=== PATIENT | female | born 1945 | race Caucasian/White ===

== ENCOUNTER 2016-06-01 05:33 | Observation (INO) ==
--- NOTE | 2016-06-01 06:03 | Emergency Department Note ---
Disposition Clinical Impression: Accidental fall from chair Qualifiers: Encounter type: initial encounter Qualified Code(s): W07.XXXA - Fall from chair , initial encounter Disposition: Admitted As Inpatient Condition: Good Instructions: Fall Prevention for Older Adults (ED) Reasons to Return/Additional Instructions: Follow-up with your primary care provider in 2-5 days. Referrals: Ede Guzmán CNP [Primary Care Provider] - Forms: ED Satisfaction Letter Time of Disposition: 08:24 Back Pain HPI - General Chief Complaint: ED Back Pain/Injury Stated Complaint: Low back pain D/T fall several times over 2-3 days Time Seen by Provider: 06/01/16 05:42 Source: patient, EMS Limitations: physical limitation Nursing Notes Reviewed: Yes Vital Signs Reviewed: Yes - History of Present Illness HPI Narrative: This is a 70-year-old female who has been falling recently she has fallen 4 times in the last week. This morning she rolled off a couch and hurt her back. Additionally her hips hurt and she hit her head Pt Subjective Complaint: fall Onset (ago): hour(s) Duration: constant - Related Data Home Medications Medication Instructions Recorded Confirmed Cyclobenzaprine [Flexeril] 10 mg PO HS 06/01/16 06/01/16 Furosemide [Lasix] 10 mg PO DAILY 06/01/16 06/01/16 HYDROcodone/Acet 5/325 mg [[place] 1 tab PO Q6H PRN 06/01/16 06/01/16 5-325 mg] Levothyroxine [Synthroid] 50 mcg PO 0630 06/01/16 06/01/16 Lisinopril [Zestril] 10 mg PO DAILY 06/01/16 06/01/16 Naproxen [Naprosyn] 500 mg PO BID 06/01/16 06/01/16 Allergies Allergy/AdvReac Type Severity Reaction Status Date / Time No Known Allergies Allergy Verified 06/01/16 05:49 All systems ED: reviewed and negative except as stated. Past Medical History - Past Medical History Medical history: Reports: diabetes, thyroid disease Psychiatric history: Reports: anxiety, depression - Social History Smoking Status: Current every day smoker Smokeless Tobacco Status: No Alcohol use: Reports: none Drug use: Reports: none Physical Exam - General Limitations: physical limitation General appearance: alert, anxious, in distress - Head Head exam: atraumatic, normocephalic - Eye Eye exam: Present: normal appearance - ENT ENT exam: normal exam - Neck Neck exam: Present: normal inspection. Absent: tenderness, meningismus - Chest Chest inspection: Present: normal inspection - Respiratory Respiratory exam: Present: normal lung sounds bilaterally - Cardiovascular Cardiovascular exam: Present: regular rate - Abdominal Exam Abdominal exam: Present: soft, Non-Tender - Extremities Exam Extremities exam: Present: normal inspection - Expanded Lower Extremity Exam Hip/Pelvis exam: Present: normal inspection - Back Exam Back exam: Present: normal inspection, tenderness (tender in lumbar region. Purple bruise from previous fall at left hip) - Neurological Exam Neurological exam: Present: alert, oriented X3 Course Course Narrative: Radiographic studies has been uneventful. While resting in the bed she appears comfortable. Going over to CAT scan she has had increased pain and getting her to lay flat on her back was quite time-consuming. - Reevaluation(s) Reevaluation #1: Time of discharge patient stated she could not get up due to pain. Patient is agreeable to admission. Vital Signs Temperature 97.1 F L 06/01/16 05:36 Pulse Rate 108 06/01/16 05:36 Respiratory Rate 22 06/01/16 05:36 Blood Pressure 153/112 06/01/16 05:36 O2 Sat by Pulse Oximetry 97 06/01/16 05:36 Temperature 97.1 F L 06/01/16 05:40 Pulse Rate 107 06/01/16 08:31 Respiratory Rate 18 06/01/16 08:31 Blood Pressure 152/83 06/01/16 08:31 O2 Sat by Pulse Oximetry 97 06/01/16 08:31 Oxygen Delivery Oxygen Delivery Room Air Back Pain/Injury - Lab Data Result diagrams: 06/01/16 05:40 06/01/16 05:40 Lab Results 06/01/16 06/01/16 06/01/16 Range/Units 05:40 05:40 05:40 WBC 10.6 (4.3-11.1) K/mcL RBC 4.77 (3.82-4.97) M/mcL Hgb 13.7 (11.5-15.4) g/dL Hct 42.5 (35.3-44.9) % MCV 89.1 (83.0-100.0) fL MCH 28.7 (28.0-33.3) pg MCHC 32.2 (31.6-35.5) g/dL RDW 14.0 (11.5-14.5) % Plt Count 166 (140-400) K/mcL MPV 12.4 (9.4-12.4) fL Immature Gran % 0.4 (0-4) % Seg Neutrophils % 76.6 % Lymphocytes % 19.3 % Monocytes % 2.8 % Eosinophils % 0.3 % Basophils % 0.6 % Neutrophils # 8.1 (1.6-8.9) K/mcL Lymphocytes # 2.0 (0.6-4.6) K/mcL Monocytes # 0.3 (0.0-1.3) K/mcL Eosinophils # 0.0 (0.0-0.6) K/mcL Basophils # 0.1 (0.0-0.2) K/mcL PT 11.4 (9.4-12.1) Seconds INR 1.1 Sodium 144 (136-145) mEq/L Potassium 4.0 (3.5-4.5) mEq/L Chloride 106 (98-109) mEq/L Carbon Dioxide 25 (19-29) mEq/L BUN 20 (7-20) mg/dL Creatinine 0.71 (0.57-1.11) mg/dL Est GFR ( Amer) > 60 (> 60) Est GFR (Non-Af Amer) > 60 (> 60) BUN/Creatinine Ratio 28 H (6-26) Glucose 134 H (70-99) mg/dL Calculated Osmolality 303 H (280-300) Calcium 9.4 (8.6-10.8) mg/dL Total Bilirubin 0.5 (0.2-1.2) mg/dL AST 20 (5-34) Units/L ALT 7 (0-55) Units/L Alkaline Phosphatase 115 (38-126) Units/L Troponin I (0-0.03) ng/mL B-Natriuretic Peptide (0-100) pg/mL Serum Total Protein 6.4 (6.0-8.3) g/dL Albumin 3.6 (3.5-5.0) g/dL Globulin 2.8 (2.4-3.5) g/dL Albumin/Globulin Ratio 1.3 (1.1-2.2) 06/01/16 06/01/16 Range/Units 05:40 05:40 WBC (4.3-11.1) K/mcL RBC (3.82-4.97) M/mcL Hgb (11.5-15.4) g/dL Hct (35.3-44.9) % MCV (83.0-100.0) fL MCH (28.0-33.3) pg MCHC (31.6-35.5) g/dL RDW (11.5-14.5) % Plt Count (140-400) K/mcL MPV (9.4-12.4) fL Immature Gran % (0-4) % Seg Neutrophils % % Lymphocytes % % Monocytes % % Eosinophils % % Basophils % % Neutrophils # (1.6-8.9) K/mcL Lymphocytes # (0.6-4.6) K/mcL Monocytes # (0.0-1.3) K/mcL Eosinophils # (0.0-0.6) K/mcL Basophils # (0.0-0.2) K/mcL PT (9.4-12.1) Seconds INR Sodium (136-145) mEq/L Potassium (3.5-4.5) mEq/L Chloride (98-109) mEq/L Carbon Dioxide (19-29) mEq/L BUN (7-20) mg/dL Creatinine (0.57-1.11) mg/dL Est GFR ( Amer) (> 60) Est GFR (Non-Af Amer) (> 60) BUN/Creatinine Ratio (6-26) Glucose (70-99) mg/dL Calculated Osmolality (280-300) Calcium (8.6-10.8) mg/dL Total Bilirubin (0.2-1.2) mg/dL AST (5-34) Units/L ALT (0-55) Units/L Alkaline Phosphatase (38-126) Units/L Troponin I 0.01 (0-0.03) ng/mL B-Natriuretic Peptide 146 H (0-100) pg/mL Serum Total Protein (6.0-8.3) g/dL Albumin (3.5-5.0) g/dL Globulin (2.4-3.5) g/dL Albumin/Globulin Ratio (1.1-2.2) - EKG Data EKG attestation: Yes I reviewed and interpreted this EKG. EKG shows normal: sinus rhythm Rate: normal Rhythm: NSR, PVC's Ectopy: PVC Interpretation: no acute changes, normal EKG
[2016-06-01 06:09] LABS: Basophils # 0.1 K/mcL (0.0-0.2); Basophils % 0.6 %; Eosinophils % 0.3 %; Hematocrit 42.5 % (35.3-44.9); Hemoglobin 13.7 g/dL (11.5-15.4); Immature Granulocytes % 0.4 % (0-4); Lymphocytes % 19.3 %; Mean Corpuscular HGB Conc 32.2 g/dL (31.6-35.5); Mean Corpuscular Hemoglobin 28.7 pg (28.0-33.3); Mean Corpuscular Volume 89.1 fL (83.0-100.0); Mean Platelet Volume 12.4 fL (9.4-12.4); Monocytes # 0.3 K/mcL (0.0-1.3); Monocytes % 2.8 %; Neutrophils # 8.1 K/mcL (1.6-8.9); Platelet Count 166 K/mcL (140-400); Red Blood Count 4.77 M/mcL (3.82-4.97); Segmented Neutrophils % 76.6 %
[2016-06-01 06:15] LABS: INR 1.1; Prothrombin Time 11.4 Seconds (9.4-12.1)
[2016-06-01] MEDS ORDERED: *HR* Morphine 2 MG/ML SYRINGE IVP STA ×3 (06:19→08:55)
[2016-06-01] MEDS ORDERED: Ondansetron 4 MG/2 ML VIAL IVP STA (06:20)
[2016-06-01 06:28] LABS: Alanine Aminotransferase 7 Units/L (0-55); Albumin 3.6 g/dL (3.5-5.0); Albumin/Globulin Ratio 1.3 (1.1-2.2); Alkaline Phosphatase 115 Units/L (38-126); Aspartate Amino Transferase 20 Units/L (5-34); BUN/Creatinine Ratio 28 (6-26); Bilirubin,Total 0.5 mg/dL (0.2-1.2); Blood Urea Nitrogen 20 mg/dL (7-20); Calcium 9.4 mg/dL (8.6-10.8); Carbon Dioxide 25 mEq/L (19-29); Chloride 106 mEq/L (98-109); Globulin 2.8 g/dL (2.4-3.5); Glucose 134 mg/dL (70-99); Osmolality,Calculated 303 (280-300); Sodium 144 mEq/L (136-145); Total Protein 6.4 g/dL (6.0-8.3); eGFR For African Americans > 60 (> 60); eGFR For Non-African Americans > 60 (> 60)
--- NOTE | 2016-06-01 10:21 | Electrocardiograph Report ---
[facility] Test Date: 2016-06-01 Pat Name: Imelda Keene Department: [id number] Room: [facility] Gender: F Flagger: [id number] : 1945 Requested By: Dave Castaneda Order Number: [id number] Reading MD: Stephen Otoole MD Measurements Intervals [place] Rate: 96 P: 152 OR: 161 QRS: 130 QRSD: 85 T: 149 QT: 333 QTc: 387 Interpretive Statements SINUS RHYTHM WITH FREQUENT VENTRICULAR PREMATURE COMPLEXES ARM LEADS REVERSED Electronically Signed On 06-01-16 10:19:14 EST by Stephen Otoole MD
[2016-06-01] MEDS ORDERED: *HR* Morphine 2 MG/ML SYRINGE IVP SCH (12:13)
[2016-06-01] MEDS ORDERED: Naloxone 0.4 MG/ML INJ IVP PRN (12:13)
--- NOTE | 2016-06-01 15:44 | Internal Med History&Physical ---
Date of Encounter: 06/01/16 Time of Encounter: 15:10 Assessment and Plan (1) Back pain Current visit: Yes Status: Acute She will be started on scheduled Tylenol, Neurontin, Naprosyn, and given a Lidoderm patch. Qualifiers: Back pain location: low back pain Chronicity: chronic Back pain laterality: midline Sciatica presence: unspecified whether sciatica present Qualified Code(s): M54.5 - Low back pain; G89.29 - Other chronic pain (2) High blood pressure Current visit: Yes Status: Chronic She will continue on lisinopril and Lasix. Blood pressure medication will be adjusted as needed. Qualifiers: Hypertension type: essential hypertension Qualified Code(s): I10 - Essential (primary) hypertension (3) DM type 2 (diabetes mellitus, type 2) Current visit: Yes Status: Chronic We will check hemoglobin A1c in a.m. She reports using Levemir 20 units at bedtime. Check Accu-Cheks with SSI. Qualifiers: Diabetes mellitus complication status: without complication Qualified Code( s): E11.9 - Type 2 diabetes mellitus without complications; Z79.4 - watermaster ( current) use of insulin (4) Hypothyroidism Current visit: Yes Status: Chronic We will order TSH in a.m. Qualifiers: Hypothyroidism type: unspecified Qualified Code(s): E03.9 - Hypothyroidism , unspecified (5) Hyperlipidemia Current visit: Yes Status: Chronic We will check lipid profile in a.m. Qualifiers: Hyperlipidemia type: unspecified Qualified Code(s): E78.5 - Hyperlipidemia , unspecified (6) Gout Current visit: Yes Status: Acute We will check uric acid level in a.m. Qualifiers: Gout site: unspecified site Gout etiology: unspecified cause Chronicity: chronic Presence of tophus: without tophus Qualified Code(s): M1A.9XX0 - Chronic gout, unspecified, without tophus (tophi) Internal Medicine - H&P: HPI Chief complaint: Falls with back pain Admitted From: Home Plans for Post Hospital Care: Home History of present illness: Ms. Keene is a 70 year old female who came to emergency room stating she is had several falls in the past 2 months and worsening back pain. She states she rolled off the couch earlier this morning was unable to get off the floor. She called for help and was brought to emergency room because of severe back pain. She was evaluated and admitted to [facility] for ongoing care needs. She states she has been in constant pain in her back since 2005. She had back surgery that year with incomplete relief of the pain. She has had worsening of the pain despite a second back surgery that was done in 2012. She reports her falls are due to her legs "giving out" due to the pain. She denies vertigo, syncope, or near syncope. She claims she has gout but denies other bone joint or muscle disorders. Past Med Surg Social Fam HX - Past Medical History Medical history: diabetes, thyroid disease Psychiatric history: anxiety, depression - Social History Smoking Status: Current every day smoker Smokeless Tobacco Status: No Alcohol use: none Drug use: none Internal Medicine - H&P: Meds Cyclobenzaprine [Flexeril] 10 mg PO HS 06/01/16 [History] Furosemide [Lasix] 10 mg PO DAILY 06/01/16 [History] HYDROcodone/Acet 5/325 mg [[place] 5-325 mg] 1 tab PO Q6H PRN 06/01/16 [History] Levothyroxine [Synthroid] 50 mcg PO 0630 06/01/16 [History] Lisinopril [Zestril] 10 mg PO DAILY 06/01/16 [History] Naproxen [Naprosyn] 500 mg PO BID 06/01/16 [History] Allergies No Known Allergies Allergy (Verified 06/01/16 05:49) All Systems PM: A 10-system review of systems was performed and is negative for pertinent findings except as documented above in the HPI. Review of systems: Gen.: She states her weight has decreased from 236 pounds one year ago to present weight of 161. This was unintentional weight loss. She states her usual adult weight was approximately 198 pounds. Cardiovascular: She has history of hypertension but denies [place] heart failure angina DVT or pulmonary embolus Respiratory: She smoked since age 12 up to one month ago. She smoked up to 3 packs per day. She does not wear home oxygen and has not been diagnosed with COPD. GI: She has had cholecystectomy. She denies disorders of her liver or exocrine pancreas : She denies hematuria dysuria or kidney stones Neurologic: She denies large distribution strokes or seizures. Endocrine: She was diagnosed with DM 2 in 1985. She has hypothyroidism and hyperlipidemia Hematology/oncology: She denies blood disorders cancers or anemia Psychiatric: She has history depression but denies anxiety or other mental health issues Musculoskeletal : As per history of present illness - Constitutional Vitals: Temp Pulse Resp BP Pulse Ox 97.4 F L 106 20 178/109 95 06/01/16 10:05 06/01/16 10:05 06/01/16 10:05 06/01/16 10:05 06/01/16 10:05 Exam: Gen.: She is a well-developed well-nourished female who appears in moderate to severe pain on movement HEENT: Head is atraumatic and normocephalic. Eyes: EOMI. There is no scleral icterus. Mouth: Mucosa is moist. Neck: Supple and nontender. There is no thyromegaly or adenopathy noted. Heart: Regular without murmurs gallops or ectopics. Lungs: No wheezes or crackles are heard. Abdomen: Soft and nontender. No masses or guarding are noted. Extremities: There is no cyanosis edema or clubbing noted. Dorsalis pedis posttibial pulses are trace palpable bilaterally. She has DJD changes of her hands. She complains of pain in her back on leg movement. Neurologic: Mental status: She is talkative and a fair to good historian. Cranial nerves: Smile is symmetric. Forehead wrinkles bilaterally. Tongue protrudes midline. EOMI. Motor: There is no pronator drift. Cerebellar: Finger to nose is intact bilaterally. Skin: Warm and dry Internal Med - H&P Results - Labs CBC & Chem 7: 06/01/16 05:40 06/01/16 05:40
[2016-06-01] MEDS: Furosemide 20 MG TABLET PO SCH (16:03)
[2016-06-01] MEDS: *HR* HYDROcodone/Acet 5/325 mg TABLET PO PRN ×2 (16:03→21:43)
[2016-06-01] MEDS: Acetaminophen 325 MG TABLET PO SCH (16:28)
[2016-06-01] MEDS: Gabapentin 300 MG CAPSULE PO SCH (16:28)
[2016-06-01] MEDS: Insulin DETEMIR 100 UNIT/ML X5UNITS SQ SCH (21:39)
[2016-06-02] MEDS: Acetaminophen 325 MG TABLET PO SCH ×4 (02:08→18:19)
[2016-06-02] MEDS: Gabapentin 300 MG CAPSULE PO SCH ×3 (02:09→16:45)
[2016-06-02] MEDS: *HR* HYDROcodone/Acet 5/325 mg TABLET PO PRN ×2 (06:08→15:08)
[2016-06-02] MEDS: Furosemide 20 MG TABLET PO SCH (08:07)
[2016-06-02 08:51] LABS: Hemoglobin A1C 5.5 %
[2016-06-02 09:41] LABS: Thyroid Stimulating Hormone 1.058 mcIU/mL (0.350-4.840)
--- NOTE | 2016-06-02 15:54 | Internal Med Progress Note ---
Date of Encounter: 06/02/16 Time of Encounter: 15:45 - Assessment and plan (1) Back pain Current Visit: Yes Status: Acute Assessment and plan: June 02. We will add Ultram and continue Tylenol, Neurontin, Naprosyn, and Lidoderm patch. We will have physical therapy and occupational therapy evaluations. Qualifiers: Back pain location: low back pain Chronicity: chronic Back pain laterality: midline Sciatica presence: unspecified whether sciatica present Qualified Code(s): M54.5 - Low back pain; G89.29 - Other chronic pain (2) High blood pressure Current Visit: Yes Status: Chronic Assessment and plan: June 02. Continue lisinopril and Lasix Qualifiers: Hypertension type: essential hypertension Qualified Code(s): I10 - Essential (primary) hypertension (3) DM type 2 (diabetes mellitus, type 2) Current Visit: Yes Status: Chronic Assessment and plan: June 02. Hemoglobin A1c was excellent at 5.5%. Continue present regimen Qualifiers: Diabetes mellitus complication status: without complication Qualified Code( s): E11.9 - Type 2 diabetes mellitus without complications; Z79.4 - long term care pharmacist ( current) use of insulin (4) Hypothyroidism Current Visit: Yes Status: Chronic Assessment and plan: June 02. TSH was normal. Continue present dose Synthroid Qualifiers: Hypothyroidism type: unspecified Qualified Code(s): E03.9 - Hypothyroidism , unspecified (5) Hyperlipidemia Current Visit: Yes Status: Chronic Assessment and plan: June 02. Her lipid profile was reviewed. We will not give medication at this time. Qualifiers: Hyperlipidemia type: unspecified Qualified Code(s): E78.5 - Hyperlipidemia , unspecified (6) Gout Current Visit: Yes Status: Acute Assessment and plan: June 02. Uric acid level slightly above desirable at 6.3. We will start low -dose allopurinol. Qualifiers: Gout site: unspecified site Gout etiology: unspecified cause Chronicity: chronic Presence of tophus: without tophus Qualified Code(s): M1A.9XX0 - Chronic gout, unspecified, without tophus (tophi) - Subjective Interval history: June 02. She states she has less pain but still significant amount when she moves. - Constitutional Vitals: Temp Pulse Resp BP Pulse Ox 97.8 F 77 18 145/89 96 06/02/16 15:34 06/02/16 15:34 06/02/16 15:34 06/02/16 15:34 06/02/16 15:34 Exam: She is resting comfortably and appears in no severe distress. I reviewed her medications and lab results. Internal Medicine: Result - Labs CBC & Chem 7: 06/01/16 05:40 06/01/16 05:40 - ABG Interpretation ABG results: PT/INR, D-dimer PT 11.4 Seconds (9.4-12.1) 06/01/16 05:40 Consult Discharge Plan - Plan Referrals: Ede Guzmán, HEALTH INFORMATION SYSTEMS TECHNICIAN [Primary Care Provider] - 1 week
[2016-06-03] MEDS: Insulin DETEMIR 100 UNIT/ML X5UNITS SQ SCH ×2 (00:01→22:51)
[2016-06-03] MEDS: Acetaminophen 325 MG TABLET PO SCH ×4 (00:42→17:36)
[2016-06-03] MEDS: Gabapentin 300 MG CAPSULE PO SCH ×2 (00:42→09:21)
[2016-06-03] MEDS: Furosemide 20 MG TABLET PO SCH (09:20)
[2016-06-03] MEDS: *HR* HYDROcodone/Acet 5/325 mg TABLET PO PRN ×2 (09:20→21:03)
--- NOTE | 2016-06-03 10:24 | Internal Med Progress Note ---
Date of Encounter: 06/03/16 Time of Encounter: 10:15 - Assessment and plan (1) Back pain Current Visit: Yes Status: Acute Assessment and plan: June 02. We will add Ultram and continue Tylenol, Neurontin, Naprosyn, and Lidoderm patch. We will have physical therapy and occupational therapy evaluations. June 03. Order PT and OT evaluations and continue present medical regimen Qualifiers: Back pain location: low back pain Chronicity: chronic Back pain laterality: midline Sciatica presence: unspecified whether sciatica present Qualified Code(s): M54.5 - Low back pain; G89.29 - Other chronic pain (2) High blood pressure Current Visit: Yes Status: Chronic Assessment and plan: June 02. Continue lisinopril and Lasix Qualifiers: Hypertension type: essential hypertension Qualified Code(s): I10 - Essential (primary) hypertension (3) DM type 2 (diabetes mellitus, type 2) Current Visit: Yes Status: Chronic Assessment and plan: June 02. Hemoglobin A1c was excellent at 5.5%. Continue present regimen Qualifiers: Diabetes mellitus complication status: without complication Qualified Code( s): E11.9 - Type 2 diabetes mellitus without complications; Z79.4 - terminal operations manager ( current) use of insulin (4) Hypothyroidism Current Visit: Yes Status: Chronic Assessment and plan: June 02. TSH was normal. Continue present dose Synthroid Qualifiers: Hypothyroidism type: unspecified Qualified Code(s): E03.9 - Hypothyroidism , unspecified (5) Hyperlipidemia Current Visit: Yes Status: Chronic Assessment and plan: June 02. Her lipid profile was reviewed. We will not give medication at this time. Qualifiers: Hyperlipidemia type: unspecified Qualified Code(s): E78.5 - Hyperlipidemia , unspecified (6) Gout Current Visit: Yes Status: Acute Assessment and plan: June 02. Uric acid level slightly above desirable at 6.3. We will start low -dose allopurinol. Qualifiers: Gout site: unspecified site Gout etiology: unspecified cause Chronicity: chronic Presence of tophus: without tophus Qualified Code(s): M1A.9XX0 - Chronic gout, unspecified, without tophus (tophi) - Subjective Interval history: June 02. She states she has less pain but still significant amount when she moves. June 03. She states her pain has not improved. - Constitutional Vitals: Temp Pulse Resp BP Pulse Ox 98.4 F 87 15 137/77 96 06/03/16 07:30 06/03/16 07:30 06/03/16 07:30 06/03/16 07:30 06/03/16 09:29 Exam: She is lying in bed and is pleasant. She does not appear to be in excessive pain. I reviewed her medications and lab results. Internal Medicine: Result - Labs CBC & Chem 7: 06/01/16 05:40 06/01/16 05:40 - ABG Interpretation ABG results: PT/INR, D-dimer PT 11.4 Seconds (9.4-12.1) 06/01/16 05:40 Consult Discharge Plan - Plan Referrals: Ede Guzmán HOME HEALTH SPECIALIST [Primary Care Provider] - 1 week
[2016-06-03] MEDS: Gabapentin 400 MG CAPSULE PO SCH ×2 (14:01→21:04)
[2016-06-04] MEDS: Acetaminophen 325 MG TABLET PO SCH ×4 (05:33→18:02)
[2016-06-04] MEDS: Gabapentin 400 MG CAPSULE PO SCH ×3 (06:04→21:28)
[2016-06-04] MEDS: Levothyroxine 25 MCG TABLET PO SCH (06:04)
[2016-06-04] MEDS: *HR* HYDROcodone/Acet 5/325 mg TABLET PO PRN ×2 (06:04→21:26)
[2016-06-04] MEDS: Furosemide 20 MG TABLET PO SCH (07:49)
--- NOTE | 2016-06-04 10:39 | Internal Med Progress Note ---
Date of Encounter: 06/04/16 Time of Encounter: 10:30 - Assessment and plan (1) Back pain Current Visit: Yes Status: Acute Assessment and plan: June 02. We will add Ultram and continue Tylenol, Neurontin, Naprosyn, and Lidoderm patch. We will have physical therapy and occupational therapy evaluations. June 03. Order PT and OT evaluations and continue present medical regimen June 04. Will add low dose OxyContin and continue with Flexeril, Neurontin, Naprosyn, and Ultram. Qualifiers: Back pain location: low back pain Chronicity: chronic Back pain laterality: midline Sciatica presence: unspecified whether sciatica present Qualified Code(s): M54.5 - Low back pain; G89.29 - Other chronic pain (2) High blood pressure Current Visit: Yes Status: Chronic Assessment and plan: June 02. Continue lisinopril and Lasix June 04. Blood pressures are stable. Continue lisinopril and Lasix Qualifiers: Hypertension type: essential hypertension Qualified Code(s): I10 - Essential (primary) hypertension (3) DM type 2 (diabetes mellitus, type 2) Current Visit: Yes Status: Chronic Assessment and plan: June 02. Hemoglobin A1c was excellent at 5.5%. Continue present regimen Qualifiers: Diabetes mellitus complication status: without complication Qualified Code( s): E11.9 - Type 2 diabetes mellitus without complications; Z79.4 - care home ( current) use of insulin (4) Hypothyroidism Current Visit: Yes Status: Chronic Assessment and plan: June 02. TSH was normal. Continue present dose Synthroid Qualifiers: Hypothyroidism type: unspecified Qualified Code(s): E03.9 - Hypothyroidism , unspecified (5) Hyperlipidemia Current Visit: Yes Status: Chronic Assessment and plan: June 02. Her lipid profile was reviewed. We will not give medication at this time. Qualifiers: Hyperlipidemia type: unspecified Qualified Code(s): E78.5 - Hyperlipidemia , unspecified (6) Gout Current Visit: Yes Status: Acute Assessment and plan: June 02. Uric acid level slightly above desirable at 6.3. We will start low -dose allopurinol. June 04. Continue low-dose allopurinol. Qualifiers: Gout site: unspecified site Gout etiology: unspecified cause Chronicity: chronic Presence of tophus: without tophus Qualified Code(s): M1A.9XX0 - Chronic gout, unspecified, without tophus (tophi) - Subjective Interval history: June 02. She states she has less pain but still significant amount when she moves. June 03. She states her pain has not improved. June 04. She reports no improvement in the pain. Physical therapy and occupational therapy did not feel they could offer much because of the severe pain on any movement. I spoke with Dr. Gonzales's office at [place] yesterday and faxed the report of her LS spine CT for review by the neurosurgeon. He has not yet reviewed when I called again today. It is anticipated he will review it later today or tomorrow morning to determine if she should be evaluated and treated before her scheduled visit June 12. - Constitutional Vitals: Temp Pulse Resp BP Pulse Ox 98.3 F 89 18 137/81 94 L 06/04/16 07:03 06/04/16 07:03 06/04/16 07:03 06/04/16 07:03 06/04/16 07:03 Exam: She is lying in bed and appears somewhat comfortable. I reviewed the medications and lab results. Internal Medicine: Result - Labs CBC & Chem 7: 06/01/16 05:40 06/01/16 05:40 - ABG Interpretation ABG results: PT/INR, D-dimer PT 11.4 Seconds (9.4-12.1) 06/01/16 05:40 Consult Discharge Plan - Plan Referrals: Ede Guzmán, EVENT MARKETING REPRESENTATIVE [Primary Care Provider] - 1 week
[2016-06-04] MEDS: *HR* OxyCODONE ER (12 HR) 10 MG TABLET PO SCH (16:44)
[2016-06-04] MEDS: Insulin DETEMIR 100 UNIT/ML X5UNITS SQ SCH (21:31)
[2016-06-05] MEDS: Acetaminophen 325 MG TABLET PO SCH ×4 (01:52→16:31)
[2016-06-05] MEDS: *HR* OxyCODONE ER (12 HR) 10 MG TABLET PO SCH ×3 (01:53→17:56)
[2016-06-05] MEDS: Levothyroxine 25 MCG TABLET PO SCH (06:39)
[2016-06-05] MEDS: Gabapentin 400 MG CAPSULE PO SCH ×2 (07:02→16:31)
[2016-06-05] MEDS: Furosemide 20 MG TABLET PO SCH (08:20)
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
[2016-06-05] MEDS ORDERED: Dextrose Gel 15 GM PO PRN ×2 (19:59)
[2016-06-05] MEDS ORDERED: D5% in Water 1,000 ML IV PRN (19:59)
[2016-06-05] MEDS ORDERED: *HR* Dextrose 50 % in Water (Syg) 50 ML SYRINGE IVP PRN (19:59)
[2016-06-05] MEDS: Insulin LISPRO 300 UNITS/3 ML VIAL SQ SCH (21:46)
[2016-06-05] MEDS: Insulin DETEMIR 100 UNIT/ML X5UNITS SQ SCH (21:46)
[2016-06-05] MEDS: *HR* HYDROcodone/Acet 5/325 mg TABLET PO PRN (21:49)
[2016-06-06] MEDS: Acetaminophen 325 MG TABLET PO SCH ×4 (00:18→16:54)
[2016-06-06] MEDS: Gabapentin 400 MG CAPSULE PO SCH ×3 (00:19→16:55)
[2016-06-06] MEDS: *HR* OxyCODONE ER (12 HR) 10 MG TABLET PO SCH ×3 (01:54→16:54)
[2016-06-06] MEDS: Levothyroxine 25 MCG TABLET PO SCH (06:36)
[2016-06-06] MEDS: Furosemide 20 MG TABLET PO SCH (09:24)
[2016-06-06] MEDS: Insulin LISPRO 300 UNITS/3 ML VIAL SQ SCH ×4 (09:31→21:16)
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
[2016-06-07] MEDS: *HR* OxyCODONE ER (12 HR) 10 MG TABLET PO SCH ×3 (00:11→16:19)
[2016-06-07] MEDS: Acetaminophen 325 MG TABLET PO SCH ×4 (00:12→18:35)
[2016-06-07] MEDS: Gabapentin 400 MG CAPSULE PO SCH ×3 (00:13→14:58)
[2016-06-07] MEDS: Levothyroxine 25 MCG TABLET PO SCH (06:06)
[2016-06-07] MEDS: Furosemide 20 MG TABLET PO SCH (09:11)
[2016-06-07] MEDS: Insulin LISPRO 300 UNITS/3 ML VIAL SQ SCH ×4 (09:12→20:57)
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
[2016-06-07] MEDS: *HR* HYDROcodone/Acet 5/325 mg TABLET PO PRN (20:57)
[2016-06-08] MEDS: Acetaminophen 325 MG TABLET PO SCH ×3 (01:17→12:39)
[2016-06-08] MEDS: Gabapentin 400 MG CAPSULE PO SCH ×3 (01:17→14:45)
[2016-06-08] MEDS: *HR* OxyCODONE ER (12 HR) 10 MG TABLET PO SCH ×2 (01:20→08:21)
[2016-06-08] MEDS: *HR* HYDROcodone/Acet 5/325 mg TABLET PO PRN ×2 (06:22→14:45)
[2016-06-08] MEDS: Levothyroxine 25 MCG TABLET PO SCH (06:22)
[2016-06-08 07:04] LABS: BUN/Creatinine Ratio 27 (6-26); Blood Urea Nitrogen 20 mg/dL (7-20); Carbon Dioxide 28 mEq/L (19-29); Chloride 103 mEq/L (98-109); Glucose 90 mg/dL (70-99); Osmolality,Calculated 294 (280-300); Potassium 4.2 mEq/L (3.5-4.5); Sodium 141 mEq/L (136-145); eGFR For African Americans > 60 (> 60); eGFR For Non-African Americans > 60 (> 60)
[2016-06-08] MEDS: Insulin LISPRO 300 UNITS/3 ML VIAL SQ SCH ×2 (07:43→12:40)
[2016-06-08] MEDS: Furosemide 20 MG TABLET PO SCH (08:21)
--- NOTE | 2016-06-08 10:33 | Discharge Summary ---
Date of Encounter: 06/08/16 Time of Encounter: 10:20 - Discharge Diagnosis (1) Back pain Priority: Primary Status: Acute Qualifiers: Back pain location: low back pain Chronicity: chronic Back pain laterality: midline Sciatica presence: unspecified whether sciatica present Qualified Code(s): M54.5 - Low back pain; G89.29 - Other chronic pain (2) High blood pressure Priority: Secondary Status: Chronic Qualifiers: Hypertension type: essential hypertension Qualified Code(s): I10 - Essential (primary) hypertension (3) DM type 2 (diabetes mellitus, type 2) Priority: Secondary Status: Chronic Qualifiers: Diabetes mellitus complication status: without complication Qualified Code( s): E11.9 - Type 2 diabetes mellitus without complications; Z79.4 - terminal gauger ( current) use of insulin (4) Hypothyroidism Priority: Secondary Status: Chronic Qualifiers: Hypothyroidism type: unspecified Qualified Code(s): E03.9 - Hypothyroidism , unspecified (5) Hyperlipidemia Priority: Secondary Status: Chronic Qualifiers: Hyperlipidemia type: unspecified Qualified Code(s): E78.5 - Hyperlipidemia , unspecified (6) Gout Priority: Secondary Status: Chronic Qualifiers: Gout site: unspecified site Gout etiology: unspecified cause Chronicity: chronic Presence of tophus: without tophus Qualified Code(s): M1A.9XX0 - Chronic gout, unspecified, without tophus (tophi) - Discharge Medications Prescriptions: Tramadol HCl [Ultram] 50 mg PO Q6H 5 Days Home Medications: Cyclobenzaprine [Flexeril] 10 mg PO HS 06/01/16 [History] Furosemide [Lasix] 10 mg PO DAILY 06/01/16 [History] HYDROcodone/Acet 5/325 mg [Thornton 5-325 mg] 1 tab PO Q6H PRN 06/01/16 [History] Levothyroxine [Synthroid] 50 mcg PO 0630 06/01/16 [History] Lisinopril [Zestril] 10 mg PO DAILY 06/01/16 [History] Naproxen [Naprosyn] 500 mg PO BID 06/01/16 [History] Acetaminophen [Tylenol] 650 mg PO Q6HR tablet 06/08/16 [Rx] Allopurinol [Zyloprim 100 MG] 200 mg PO DAILY tablet 06/08/16 [Rx] Gabapentin [Neurontin] 400 mg PO Q8H capsule 06/08/16 [Rx] Lidocaine Patch [Lidoderm 5% patch] 1 each TP DAILY adh..patch 06/08/16 [Rx] OxyCODONE ER (12 HR) [OxyCONTIN] 10 mg PO Q8HR tab.er.12h 06/08/16 [Rx] Tramadol HCl [Ultram] 50 mg PO Q6H 5 Days 06/08/16 [Rx] Allergies/Adverse Reactions: Allergies No Known Allergies Allergy (Verified 06/01/16 05:49) Date of admission: 06/01/16 08:57 Primary care physician: Ede Guzmán CNP Consults: 06/06/16 10:20 Consult to Occupational Therapy [CONS] Routine Comment: Evaluate, develop and implement POC Consult to Physical Therapy [CONS] Routine Comment: Evaluate, develop and implement POC 06/08/16 09:41 Consult to Occupational Therapy [CONS] Routine Comment: Evaluate, develop and implement POC Consult to Physical Therapy [CONS] Routine Comment: Evaluate, develop and implement POC - Patient Status Disposition: Transfer Short-Term Hosp Condition: Good - Discharge Instructions Hospital course: Ms. Keene is a 70 year old female who came to emergency room stating she is had several falls in the past 2 months and worsening back pain. She states she rolled off the couch earlier this morning was unable to get off the floor. She called for help and was brought to emergency room because of severe back pain. She was evaluated and admitted to [facility] for ongoing care needs. Initial orders were written by the emergency room physician. I saw her on June 01 and performed a history and physical. She was started on scheduled Tylenol, Neurontin, Naprosyn, and given a Lidoderm patch. Scheduled OxyContin was added a few days later. She had prn Thornton available also. She had persistent significant complaints of pain in her back. She had physical therapy and occupational therapy evaluations but could not participate in therapy significantly because of complaints of pain. I spoke with Dr. Montgomery's office at [place] and faxed him the report of the CT of the LS spine which showed significant pathology. He evaluated the CT report and recommended she be transferred to [facility] for ongoing intervention. Uric acid level returned elevated at 6.3. She was started on allopurinol. Hemoglobin A1c returned satisfactory at 5.5%. She was taken off Levemir and continued with Accu-Cheks and SSI. - Time Spent with Patient Total time spent providing and/or coordinating discharge services: - Constitutional Vitals: Temp Pulse Resp BP Pulse Ox 97.6 F 84 16 129/81 95 06/08/16 06:00 06/08/16 06:00 06/08/16 06:00 06/08/16 06:00 06/08/16 06:00 - VTE Documentation of Mechanical Device: Graduated compression elastic hosiery
[2016-06-08 10:37] VITALS: BP 137/91
== END 2016-06-08 14:15 | disposition short-term general hospital (02) ==
LOC: INPPIK 05:33 → EMEROOPIK 05:33 → INPPIK 09:59
PROVIDERS: ADMIT Internal Medicine; ATTEND Internal Medicine

== ENCOUNTER 2019-12-17 19:07 | Inpatient (IN) ==
[2019-12-17 19:46] LABS: Basophils # 0.1 K/mcL (0.0-0.2); Basophils % 0.6 %; Eosinophils # 0.1 K/mcL (0.0-0.6); Eosinophils % 0.9 %; Hemoglobin 9.8 g/dL (11.5-15.4); Immature Granulocytes % 0.2 % (0-4); Lymphocytes # 2.3 K/mcL (0.6-4.6); Lymphocytes % 26.8 %; Mean Corpuscular HGB Conc 28.8 g/dL (31.6-35.5); Mean Corpuscular Hemoglobin 21.6 pg (28.0-33.3); Mean Corpuscular Volume 74.9 fL (83.0-100.0); Mean Platelet Volume 11.6 fL (9.4-12.4); Monocytes # 0.4 K/mcL (0.0-1.3); Monocytes % 4.4 %; Neutrophils # 5.7 K/mcL (1.6-8.9); Platelet Count 240 K/mcL (140-400); Red Blood Count 4.54 M/mcL (3.82-4.97); Red Cell Distribution Width 18.6 % (11.5-14.5); Segmented Neutrophils % 67.1 %; White Blood Count 8.4 K/mcL (4.3-11.1)
[2019-12-17 20:06] LABS: Alanine Aminotransferase 3 Units/L (7-52); Albumin 3.5 g/dL (3.5-5.7); Albumin/Globulin Ratio 1.4 (1.1-2.2); Alkaline Phosphatase 65 Units/L (34-104); Aspartate Amino Transferase 9 Units/L (13-39); BUN/Creatinine Ratio 27 (6-26); Bilirubin,Total 0.3 mg/dL (0.3-1.0); Blood Urea Nitrogen 15 mg/dL (8-23); Calcium 8.3 mg/dL (8.6-10.3); Carbon Dioxide 30 mEq/L (23-29); Chloride 105 mEq/L (98-107); Globulin 2.5 g/dL (2.4-3.5); Glucose 92 mg/dL (70-105); Osmolality,Calculated 298 (280-300); Potassium 3.2 mEq/L (3.5-5.1); Sodium 144 mEq/L (136-145); eGFR For African Americans > 60 (> 60); eGFR For Non-African Americans > 60 (> 60)
[2019-12-17 20:15] LABS: Anisocytosis 1+ (Not Present); Hypochromasia Present (Not Present); Large Platelets Present (Not Present); Platelet Estimate Normal (Normal); Polychromasia 1+ (Not Present)
[2019-12-17] MEDS ORDERED: Potassium Effervescent 25 MEQ TABLET.EFF PO ONE (20:17)
[2019-12-17] MEDS ORDERED: Ondansetron 4 MG/2 ML VIAL IVP ONE (20:36)
[2019-12-17 20:37] LABS: Bilirubin,Urine Negative (Negative); Blood,Urine Negative (Negative); Clarity,Urine Slightly Cloudy (Clear); Color,Urine Yellow (Yellow); Glucose,Urine (UA) Normal (Normal); Ketones,Urine Negative (Negative); Leukocyte Esterase,Urine Negative (Negative); Nitrite,Urine Negative (Negative); PH,Urine 5.5 pH Units (5.0-8.0); Protein,Urine >=300 mg/dL (Neg-Trace); Specific Gravity,Urine >= 1.030 (1.010-1.025); Urobilinogen,Urine Normal (Normal)
[2019-12-17 20:45] LABS: Bacteria,Urine Moderate per hpf (None-Few); Hyaline Casts,Urine Few per lpf (None Seen); Mucus,Urine Many per lpf (None-Few)
[2019-12-17 20:47] LABS: RBC,Urine 0-3 per hpf (0-3); Squamous Epithelial Cell,Urine Moderate per hpf (None-Few)
[2019-12-17] MEDS ORDERED: levoFLOXacin 500 MG TABLET PO ONE (22:44)
[2019-12-18] MEDS ORDERED: Acetaminophen 325 MG TABLET PO PRN ×2 (00:23→02:15)
[2019-12-18] MEDS ORDERED: *HR* HYDROcodone/Acet 10/325 mg TABLET PO PRN ×2 (02:12→02:15)
[2019-12-18] MEDS: Levothyroxine 25 MCG TABLET PO SCH (05:54)
[2019-12-18] MEDS ORDERED: *HR* Dextrose 50 % in Water (Vial) 50 ML VIAL IVP PRN (08:16)
[2019-12-18] MEDS ORDERED: Dextrose Gel 15 GM/37.5 ML TUBE PO PRN ×2 (08:16)
[2019-12-18] MEDS ORDERED: D5% in Water 1,000 ML IVC PRN (08:16)
[2019-12-18] MEDS ORDERED: Albuterol 2.5 MG/3 ML NEBULIZER IH PRN (08:24)
[2019-12-18] MEDS: lisinopriL 20 MG TABLET PO SCH (08:25)
[2019-12-18] MEDS ORDERED: Ondansetron 4 MG/2 ML VIAL IVP PRN (08:29)
[2019-12-18] MEDS ORDERED: Azithromycin 500 MG in 0.9 % Sodium Chloride 250 ML IVPB SCH (09:00)
[2019-12-18] MEDS ORDERED: levoFLOXacin 500 MG TABLET PO SCH ×2 (09:00)
[2019-12-18] MEDS ORDERED: lisinopriL 10 MG TABLET PO SCH (09:00)
[2019-12-18] MEDS ORDERED: Furosemide 20 MG TABLET PO SCH (09:00)
[2019-12-18 09:08] LABS: Basophils % 0.4 %; Eosinophils # 0.1 K/mcL (0.0-0.6); Eosinophils % 0.8 %; Hematocrit 34.2 % (35.3-44.9); Hemoglobin 9.7 g/dL (11.5-15.4); Immature Granulocytes % 0.5 % (0-4); Lymphocytes # 1.3 K/mcL (0.6-4.6); Lymphocytes % 18.1 %; Mean Corpuscular HGB Conc 28.4 g/dL (31.6-35.5); Mean Corpuscular Hemoglobin 21.5 pg (28.0-33.3); Mean Corpuscular Volume 75.8 fL (83.0-100.0); Mean Platelet Volume 11.5 fL (9.4-12.4); Monocytes # 0.4 K/mcL (0.0-1.3); Monocytes % 5.4 %; Neutrophils # 5.5 K/mcL (1.6-8.9); Platelet Count 238 K/mcL (140-400); Red Blood Count 4.51 M/mcL (3.82-4.97); Red Cell Distribution Width 18.3 % (11.5-14.5); Segmented Neutrophils % 74.8 %; White Blood Count 7.4 K/mcL (4.3-11.1)
[2019-12-18 09:37] LABS: INR 2.9; Prothrombin Time 32.5 Seconds (9.4-12.1)
[2019-12-18 09:43] LABS: BUN/Creatinine Ratio 21 (6-26); Blood Urea Nitrogen 12 mg/dL (8-23); Calcium 8.4 mg/dL (8.6-10.3); Carbon Dioxide 34 mEq/L (23-29); Chloride 102 mEq/L (98-107); Glucose 97 mg/dL (70-105); Osmolality,Calculated 298 (280-300); Potassium 3.9 mEq/L (3.5-5.1); Sodium 144 mEq/L (136-145); eGFR For African Americans > 60 (> 60); eGFR For Non-African Americans > 60 (> 60)
[2019-12-18 11:02] LABS: Hypochromasia Present (Not Present)
[2019-12-18] MEDS: cefTRIAXone 1,000 MG in 0.9 % Sodium Chloride Mini Bag 100 ML IVPB SCH (11:04)
[2019-12-18] MEDS: Gabapentin 400 MG CAPSULE PO SCH ×3 (11:04→20:11)
[2019-12-18] MEDS: Furosemide 20 MG TABLET PO SCH (11:04)
[2019-12-18] MEDS: Azithromycin 500 MG in 0.9 % Sodium Chloride 250 ML IVPB SCH (11:05)
[2019-12-18] MEDS: Nicotine 14 MG PATCH.TD24 TD SCH (11:10)
[2019-12-18 13:09] LABS: Estimated Average Glucose 126 mg/dl
[2019-12-18] MEDS: Insulin LISPRO 300 UNITS/3 ML VIAL SQ SCH ×3 (13:17→20:11)
[2019-12-18 13:31] LABS: Adenovirus Not Detected (Not Detect); Bordetella Pertussis Not Detected (Not Detect); Chlamydophila pneumoniae Not Detected (Not Detect); Coronavirus 229E Not Detected (Not Detect); Coronavirus HKU1 Not Detected (Not Detect); Coronavirus NL63 Not Detected (Not Detect); Coronavirus OC43 Not Detected (Not Detect); Human Metapneumovirus Not Detected (Not Detect); Human Rhinovirus/Enterovirus Not Detected (Not Detect); Influenza A Subtype 2009 H1 Not Detected (Not Detect); Influenza B Not Detected (Not Detect); Mycoplasma pneumoniae Not Detected (Not Detect); Parainfluenza Virus 1 Not Detected (Not Detect); Parainfluenza Virus 2 Not Detected (Not Detect); Parainfluenza Virus 3 Not Detected (Not Detect); Parainfluenza Virus 4 Not Detected (Not Detect); Respiratory Syncytial Virus Not Detected (Not Detect)
[2019-12-18] MEDS: MethylPREDNISolone 40 MG/ML VIAL IVP SCH (16:13)
[2019-12-18] MEDS ORDERED: Warfarin perPT PO PRN (18:00)
[2019-12-18] MEDS ORDERED: *HR* Warfarin 5 MG TABLET PO ONE (18:00)
[2019-12-18] MEDS ORDERED: NON-FORMULARY MEDICATION 1 EACH EACH (Insulin Detemir 10 UNIT) SQ SCH (21:00)
[2019-12-18] MEDS ORDERED: Insulin DETEMIR 100 UNIT/ML per UNIT SQ SCH (21:00)
[2019-12-19] MEDS: MethylPREDNISolone 40 MG/ML VIAL IVP SCH ×3 (00:41→15:00)
[2019-12-19] MEDS: Levothyroxine 25 MCG TABLET PO SCH (05:39)
[2019-12-19 06:44] LABS: Hematocrit 33.4 % (35.3-44.9); Hemoglobin 9.6 g/dL (11.5-15.4); Immature Granulocytes % 0.4 % (0-4); Lymphocytes # 0.6 K/mcL (0.6-4.6); Lymphocytes % 11.2 %; Mean Corpuscular HGB Conc 28.7 g/dL (31.6-35.5); Mean Corpuscular Hemoglobin 21.5 pg (28.0-33.3); Mean Corpuscular Volume 74.9 fL (83.0-100.0); Mean Platelet Volume 11.7 fL (9.4-12.4); Monocytes # 0.1 K/mcL (0.0-1.3); Monocytes % 0.9 %; Neutrophils # 4.8 K/mcL (1.6-8.9); Platelet Count 224 K/mcL (140-400); Red Blood Count 4.46 M/mcL (3.82-4.97); Red Cell Distribution Width 18.2 % (11.5-14.5); Segmented Neutrophils % 87.5 %; White Blood Count 5.5 K/mcL (4.3-11.1)
[2019-12-19 06:46] LABS: INR 2.2
[2019-12-19 07:02] LABS: BUN/Creatinine Ratio 23 (6-26); Blood Urea Nitrogen 11 mg/dL (8-23); Calcium 8.7 mg/dL (8.6-10.3); Carbon Dioxide 33 mEq/L (23-29); Chloride 102 mEq/L (98-107); Glucose 186 mg/dL (70-105); Osmolality,Calculated 298 (280-300); Potassium 4.1 mEq/L (3.5-5.1); Sodium 142 mEq/L (136-145); eGFR For African Americans > 60 (> 60); eGFR For Non-African Americans > 60 (> 60)
[2019-12-19 07:28] LABS: Anisocytosis 1+ (Not Present)
[2019-12-19 07:29] LABS: Hypochromasia Present (Not Present)
[2019-12-19] MEDS: Nicotine 14 MG PATCH.TD24 TD SCH (08:19)
[2019-12-19] MEDS: cefTRIAXone 1,000 MG in 0.9 % Sodium Chloride Mini Bag 100 ML IVPB SCH (08:21)
[2019-12-19] MEDS: Gabapentin 400 MG CAPSULE PO SCH ×3 (08:22→20:40)
[2019-12-19] MEDS: lisinopriL 20 MG TABLET PO SCH (08:22)
[2019-12-19] MEDS: Furosemide 20 MG TABLET PO SCH (08:22)
[2019-12-19] MEDS: Insulin LISPRO 300 UNITS/3 ML VIAL SQ SCH ×4 (08:25→20:40)
[2019-12-19 09:40] LABS: Folate 9.3 ng/mL (3.0-16.0)
[2019-12-19 09:46] LABS: Iron < 10 mcg/dL (50-170); Transferrin 240 mg/dL (203-362)
[2019-12-19] MEDS: Azithromycin 500 MG in 0.9 % Sodium Chloride 250 ML IVPB SCH (10:15)
[2019-12-19] MEDS: Budesonide/Formoterol 160/4.5 1 PUFF INH IH SCH ×2 (13:15→19:36)
[2019-12-19] MEDS ORDERED: *HR* Warfarin 5 MG TABLET PO ONE (18:00)
[2019-12-20] MEDS: MethylPREDNISolone 40 MG/ML VIAL IVP SCH ×3 (00:50→15:04)
[2019-12-20] MEDS: Levothyroxine 25 MCG TABLET PO SCH (06:06)
[2019-12-20 06:30] LABS: Basophils % 0.1 %; Hematocrit 32.6 % (35.3-44.9); Hemoglobin 9.4 g/dL (11.5-15.4); Immature Granulocytes % 0.5 % (0-4); Lymphocytes # 0.8 K/mcL (0.6-4.6); Lymphocytes % 5.4 %; Mean Corpuscular HGB Conc 28.8 g/dL (31.6-35.5); Mean Corpuscular Hemoglobin 21.3 pg (28.0-33.3); Mean Corpuscular Volume 73.9 fL (83.0-100.0); Monocytes # 0.2 K/mcL (0.0-1.3); Monocytes % 1.2 %; Neutrophils # 12.8 K/mcL (1.6-8.9); Nucleated Red Blood Cells 0.1 /100 WBC (0); Platelet Count 234 K/mcL (140-400); Red Blood Count 4.41 M/mcL (3.82-4.97); Red Cell Distribution Width 18.2 % (11.5-14.5); Segmented Neutrophils % 92.8 %; White Blood Count 13.8 K/mcL (4.3-11.1)
[2019-12-20 06:49] LABS: INR 2.3; Prothrombin Time 26.5 Seconds (9.4-12.1)
[2019-12-20 07:01] VITALS: BP 136/85
[2019-12-20 07:19] LABS: Platelet Estimate Normal (Normal)
[2019-12-20 07:20] LABS: Anisocytosis 2+ (Not Present); Hypochromasia Present (Not Present); Ovalocytes 2+ (Not Present)
[2019-12-20] MEDS: Gabapentin 400 MG CAPSULE PO SCH ×2 (08:05→15:04)
[2019-12-20] MEDS: cefTRIAXone 1,000 MG in 0.9 % Sodium Chloride Mini Bag 100 ML IVPB SCH (08:05)
[2019-12-20] MEDS: Nicotine 14 MG PATCH.TD24 TD SCH (08:05)
[2019-12-20] MEDS: Furosemide 20 MG TABLET PO SCH (08:06)
[2019-12-20] MEDS: lisinopriL 20 MG TABLET PO SCH (08:06)
[2019-12-20] MEDS: Insulin LISPRO 300 UNITS/3 ML VIAL SQ SCH ×3 (08:07→17:25)
[2019-12-20 08:50] LABS: BUN/Creatinine Ratio 35 (6-26); Blood Urea Nitrogen 18 mg/dL (8-23); Calcium 8.8 mg/dL (8.6-10.3); Carbon Dioxide 31 mEq/L (23-29); Chloride 101 mEq/L (98-107); Glucose 189 mg/dL (70-105); Osmolality,Calculated 299 (280-300); Sodium 141 mEq/L (136-145); eGFR For African Americans > 60 (> 60); eGFR For Non-African Americans > 60 (> 60)
[2019-12-20] MEDS ORDERED: Simethicone 80 MG TAB.CHEW PO PRN (08:56)
[2019-12-20] MEDS ORDERED: Cyanocobalamin (B-12) 1,000 MCG TABLET PO SCH (09:00)
[2019-12-20] MEDS: Azithromycin 500 MG in 0.9 % Sodium Chloride 250 ML IVPB SCH (09:25)
[2019-12-20] MEDS: Budesonide/Formoterol 160/4.5 1 PUFF INH IH SCH (10:16)
[2019-12-20] MEDS ORDERED: *HR* Warfarin 5 MG TABLET PO ONE (18:00)
== END 2019-12-20 19:18 | disposition home or self-care (01) | DRG 193 ==
LOC: EMEROOPIK 19:07 → INPPIK 19:07 → SUATTDRO 12-18 11:51
PROVIDERS: ADMIT Internal Medicine; ATTEND Family Medicine

== ENCOUNTER 2021-06-29 15:34 | Inpatient (IN) ==
[2021-07-03] MEDS: traZODone 50 MG TABLET PO SCH (22:18)
[2021-07-03] MEDS: *HR* Metformin 500 MG TABLET PO SCH (22:18)
[2021-07-04 07:06] LABS: Basophils # 0.1 K/mcL (0.0-0.2); Basophils % 0.5 %; Eosinophils # 0.1 K/mcL (0.0-0.6); Eosinophils % 0.6 %; Hemoglobin 8.2 g/dL (11.5-15.4); Immature Granulocytes % 0.5 % (0-4); Lymphocytes # 2.3 K/mcL (0.6-4.6); Lymphocytes % 22.4 %; Mean Corpuscular HGB Conc 27.3 g/dL (31.6-35.5); Mean Corpuscular Hemoglobin 19.8 pg (28.0-33.3); Mean Corpuscular Volume 72.5 fL (83.0-100.0); Mean Platelet Volume 10.9 fL (9.4-12.4); Monocytes # 0.4 K/mcL (0.0-1.3); Neutrophils # 7.3 K/mcL (1.6-8.9); Platelet Count 267 K/mcL (140-400); Red Blood Count 4.14 M/mcL (3.82-4.97); Red Cell Distribution Width 20.4 % (11.5-14.5); White Blood Count 10.2 K/mcL (4.3-11.1)
[2021-07-04 07:35] LABS: BUN/Creatinine Ratio 41 (6-26); Blood Urea Nitrogen 26 mg/dL (8-23); Calcium 8.8 mg/dL (8.6-10.3); Carbon Dioxide 28 mEq/L (23-29); Chloride 104 mEq/L (98-107); Glucose 126 mg/dL (70-105); Osmolality,Calculated 294 (280-300); Potassium 4.1 mEq/L (3.5-5.1); Sodium 139 mEq/L (136-145); eGFR For African Americans > 60 (> 60); eGFR For Non-African Americans > 60 (> 60)
[2021-07-04] MEDS ORDERED: Tiotropium 10 INH DOSE IH ONE (08:36)
[2021-07-04] MEDS ORDERED: lisinopriL 20 MG TABLET PO SCH (09:00)
[2021-07-04] MEDS: BuPROPion XL (24 HR) 150 MG TABLET PO SCH (09:13)
[2021-07-04] MEDS: levoFLOXacin 500 MG TABLET PO SCH (09:14)
[2021-07-04] MEDS: *HR* Metformin 500 MG TABLET PO SCH ×2 (09:14→20:02)
[2021-07-04] MEDS: Sennosides/Docusate Sodium TABLET PO SCH (09:15)
[2021-07-04] MEDS: Multivit/Ca/Min/Fe/FA 1 TAB TABLET PO SCH (09:15)
[2021-07-04] MEDS: allopurinoL 100 MG TABLET PO SCH (09:15)
[2021-07-04] MEDS: Cyanocobalamin (B-12) 1,000 MCG TABLET PO SCH (09:16)
[2021-07-04] MEDS: Tiotropium 10 INH DOSE IH SCH (09:31)
[2021-07-04] MEDS: *HR* OxyCODONE Immed Rel 5 MG TABLET PO PRN (11:31)
[2021-07-04] MEDS: traZODone 50 MG TABLET PO SCH (20:02)
[2021-07-05] MEDS: Multivit/Ca/Min/Fe/FA 1 TAB TABLET PO SCH (08:06)
[2021-07-05] MEDS: BuPROPion XL (24 HR) 150 MG TABLET PO SCH (08:06)
[2021-07-05] MEDS: Cyanocobalamin (B-12) 1,000 MCG TABLET PO SCH (08:06)
[2021-07-05] MEDS: allopurinoL 100 MG TABLET PO SCH (08:07)
[2021-07-05] MEDS: levoFLOXacin 500 MG TABLET PO SCH (08:07)
[2021-07-05] MEDS: *HR* Metformin 500 MG TABLET PO SCH ×2 (08:07→19:37)
[2021-07-05] MEDS: Sennosides/Docusate Sodium TABLET PO SCH (08:07)
[2021-07-05] MEDS: Tiotropium 10 INH DOSE IH SCH (10:16)
[2021-07-05] MEDS: *HR* OxyCODONE Immed Rel 5 MG TABLET PO PRN (16:33)
[2021-07-05] MEDS: traZODone 50 MG TABLET PO SCH (19:37)
[2021-07-05 22:00] LABS: % Iron Saturation 3 % (15-50); Iron 13 mcg/dL (50-170); Transferrin 285 mg/dL (203-362)
[2021-07-05 22:26] LABS: Folate 14.8 ng/mL (3.0-16.0)
[2021-07-06] MEDS: Sennosides/Docusate Sodium TABLET PO SCH (07:20)
[2021-07-06] MEDS: Multivit/Ca/Min/Fe/FA 1 TAB TABLET PO SCH (07:58)
[2021-07-06] MEDS: allopurinoL 100 MG TABLET PO SCH (07:58)
[2021-07-06] MEDS: levoFLOXacin 500 MG TABLET PO SCH (07:58)
[2021-07-06] MEDS: Cyanocobalamin (B-12) 1,000 MCG TABLET PO SCH (07:58)
[2021-07-06] MEDS: *HR* Metformin 500 MG TABLET PO SCH ×2 (07:59→20:20)
[2021-07-06] MEDS: BuPROPion XL (24 HR) 150 MG TABLET PO SCH (07:59)
[2021-07-06] MEDS: *HR* OxyCODONE Immed Rel 5 MG TABLET PO PRN ×2 (08:11→18:52)
[2021-07-06] MEDS: Tiotropium 10 INH DOSE IH SCH (09:40)
[2021-07-06] MEDS: traZODone 50 MG TABLET PO SCH (20:20)
[2021-07-07] MEDS: *HR* Metformin 500 MG TABLET PO SCH ×2 (07:37→20:29)
[2021-07-07] MEDS: levoFLOXacin 500 MG TABLET PO SCH (07:37)
[2021-07-07] MEDS: Cyanocobalamin (B-12) 1,000 MCG TABLET PO SCH (07:38)
[2021-07-07] MEDS: Multivit/Ca/Min/Fe/FA 1 TAB TABLET PO SCH (07:38)
[2021-07-07] MEDS: BuPROPion XL (24 HR) 150 MG TABLET PO SCH (07:38)
[2021-07-07] MEDS: allopurinoL 100 MG TABLET PO SCH (07:38)
[2021-07-07] MEDS: Sennosides/Docusate Sodium TABLET PO SCH (07:40)
[2021-07-07] MEDS: Tiotropium 10 INH DOSE IH SCH (10:14)
[2021-07-07] MEDS: *HR* OxyCODONE Immed Rel 5 MG TABLET PO PRN ×2 (10:49→20:29)
[2021-07-07] MEDS: traZODone 50 MG TABLET PO SCH (20:30)
[2021-07-08] MEDS: Sennosides/Docusate Sodium TABLET PO SCH (09:19)
[2021-07-08] MEDS: Cyanocobalamin (B-12) 1,000 MCG TABLET PO SCH (09:19)
[2021-07-08] MEDS: levoFLOXacin 500 MG TABLET PO SCH (09:20)
[2021-07-08] MEDS: *HR* Metformin 500 MG TABLET PO SCH ×2 (09:20→20:04)
[2021-07-08] MEDS: BuPROPion XL (24 HR) 150 MG TABLET PO SCH (09:20)
[2021-07-08] MEDS: Multivit/Ca/Min/Fe/FA 1 TAB TABLET PO SCH (09:20)
[2021-07-08] MEDS: allopurinoL 100 MG TABLET PO SCH (09:21)
[2021-07-08] MEDS: Tiotropium 10 INH DOSE IH SCH (09:36)
[2021-07-08] MEDS: traZODone 50 MG TABLET PO SCH (20:04)
[2021-07-08] MEDS: *HR* OxyCODONE Immed Rel 5 MG TABLET PO PRN (20:05)
[2021-07-09] MEDS: Tiotropium 10 INH DOSE IH SCH (08:50)
[2021-07-09] MEDS: Cyanocobalamin (B-12) 1,000 MCG TABLET PO SCH (09:04)
[2021-07-09] MEDS: Multivit/Ca/Min/Fe/FA 1 TAB TABLET PO SCH (09:04)
[2021-07-09] MEDS: BuPROPion XL (24 HR) 150 MG TABLET PO SCH (09:04)
[2021-07-09] MEDS: Sennosides/Docusate Sodium TABLET PO SCH (09:04)
[2021-07-09] MEDS: *HR* Metformin 500 MG TABLET PO SCH ×2 (09:04→19:43)
[2021-07-09] MEDS: allopurinoL 100 MG TABLET PO SCH (09:04)
[2021-07-09] MEDS: levoFLOXacin 500 MG TABLET PO SCH (09:05)
[2021-07-09] MEDS: traZODone 50 MG TABLET PO SCH (19:42)
[2021-07-09] MEDS: *HR* OxyCODONE Immed Rel 5 MG TABLET PO PRN (19:43)
[2021-07-10] MEDS: BuPROPion XL (24 HR) 150 MG TABLET PO SCH (08:15)
[2021-07-10] MEDS: Multivit/Ca/Min/Fe/FA 1 TAB TABLET PO SCH (08:15)
[2021-07-10] MEDS: Sennosides/Docusate Sodium TABLET PO SCH (08:15)
[2021-07-10] MEDS: Cyanocobalamin (B-12) 1,000 MCG TABLET PO SCH (08:15)
[2021-07-10] MEDS: levoFLOXacin 500 MG TABLET PO SCH (08:15)
[2021-07-10] MEDS: *HR* Metformin 500 MG TABLET PO SCH ×2 (08:16→21:22)
[2021-07-10] MEDS: allopurinoL 100 MG TABLET PO SCH (08:16)
[2021-07-10] MEDS: Tiotropium 10 INH DOSE IH SCH (10:02)
[2021-07-10] MEDS: *HR* OxyCODONE Immed Rel 5 MG TABLET PO PRN (10:26)
[2021-07-10] MEDS: traZODone 50 MG TABLET PO SCH (21:21)
[2021-07-11] MEDS ORDERED: Bismuth Subsalicylate 120 ML ORAL SUSPENSION PO PRN ×2 (05:24→09:15)
[2021-07-11] MEDS ORDERED: Ondansetron ODT 4 MG TAB.RAPDIS SL PRN (06:00)
[2021-07-11] MEDS: BuPROPion XL (24 HR) 150 MG TABLET PO SCH (07:46)
[2021-07-11] MEDS: levoFLOXacin 500 MG TABLET PO SCH (07:46)
[2021-07-11] MEDS: Multivit/Ca/Min/Fe/FA 1 TAB TABLET PO SCH (07:46)
[2021-07-11] MEDS: Cyanocobalamin (B-12) 1,000 MCG TABLET PO SCH (07:46)
[2021-07-11] MEDS: allopurinoL 100 MG TABLET PO SCH (07:47)
[2021-07-11] MEDS: *HR* Metformin 500 MG TABLET PO SCH ×2 (07:47→21:00)
[2021-07-11] MEDS: Sennosides/Docusate Sodium TABLET PO SCH (07:53)
[2021-07-11] MEDS: Tiotropium 10 INH DOSE IH SCH (09:56)
[2021-07-11] MEDS: traZODone 50 MG TABLET PO SCH (21:00)
[2021-07-12 06:44] VITALS: BP 111/66; PULSE 81; RESP 18; TEMP 98.1; O2SAT 96
[2021-07-12] MEDS: Multivit/Ca/Min/Fe/FA 1 TAB TABLET PO SCH (09:11)
[2021-07-12] MEDS: Cyanocobalamin (B-12) 1,000 MCG TABLET PO SCH (09:12)
[2021-07-12] MEDS: allopurinoL 100 MG TABLET PO SCH (09:12)
[2021-07-12] MEDS: BuPROPion XL (24 HR) 150 MG TABLET PO SCH (09:12)
[2021-07-12] MEDS: *HR* Metformin 500 MG TABLET PO SCH (09:13)
[2021-07-12] MEDS: Sennosides/Docusate Sodium TABLET PO SCH (09:14)
[2021-07-12] MEDS: Tiotropium 10 INH DOSE IH SCH (10:18)
== END 2021-07-12 10:15 | DRG 93 ==
LOC: INPPIK 07-03 20:14
PROVIDERS: ADMIT Family Medicine; ATTEND Family Medicine

== ENCOUNTER 2021-11-17 11:15 | Inpatient (IN) ==
[2021-11-17] MEDS ORDERED: Ondansetron 4 MG/2 ML VIAL IVP ONE (11:31)
[2021-11-17] MEDS ORDERED: Morphine Sulfate 2 MG/ML SYRINGE IVP ONE (11:31)
[2021-11-17] MEDS ORDERED: 0.9 % Sodium Chloride 500 ML IVC ONE (11:31)
[2021-11-17 11:41] LABS: Basophils # 0.1 K/mcL (0.0-0.2); Basophils % 0.4 %; Eosinophils % 0.2 %; Hematocrit 34.2 % (35.3-44.9); Hemoglobin 9.5 g/dL (11.5-15.4); Immature Granulocytes % 0.7 % (0-4); Lymphocytes # 1.6 K/mcL (0.6-4.6); Lymphocytes % 12.7 %; Mean Corpuscular HGB Conc 27.8 g/dL (31.6-35.5); Mean Corpuscular Hemoglobin 19.1 pg (28.0-33.3); Mean Corpuscular Volume 68.8 fL (83.0-100.0); Mean Platelet Volume 10.2 fL (9.4-12.4); Monocytes # 0.6 K/mcL (0.0-1.3); Neutrophils # 10.1 K/mcL (1.6-8.9); Platelet Count 202 K/mcL (140-400); Red Blood Count 4.97 M/mcL (3.82-4.97); Red Cell Distribution Width 22.2 % (11.5-14.5); White Blood Count 12.5 K/mcL (4.3-11.1)
[2021-11-17] MEDS: 0.9 % Sodium Chloride 1,000 ML IVC SCH ×2 (11:43→17:19)
[2021-11-17 11:49] LABS: INR 1.1; Prothrombin Time 11.8 Seconds (9.4-12.1)
[2021-11-17 12:01] LABS: BUN/Creatinine Ratio 32 (6-26); Blood Urea Nitrogen 18 mg/dL (8-23); Calcium 8.4 mg/dL (8.6-10.3); Carbon Dioxide 26 mEq/L (23-29); Chloride 104 mEq/L (98-107); Glucose 117 mg/dL (70-105); Osmolality,Calculated 293 (280-300); Potassium 3.7 mEq/L (3.5-5.1); Sodium 140 mEq/L (136-145); eGFR For African Americans > 60 (> 60); eGFR For Non-African Americans > 60 (> 60)
[2021-11-17 12:08] LABS: Anisocytosis 2+ (Not Present); Hypochromasia Present (Not Present); Macrocytosis Present (Not Present)
[2021-11-17 12:09] LABS: Microcytosis Present (Not Present)
[2021-11-17 12:10] LABS: Acanthocytes 1+ (Not Present); Ovalocytes 1+ (Not Present); Poikilocytosis 1+ (Not Present)
[2021-11-17 12:11] LABS: Platelet Estimate Normal (Normal)
[2021-11-17 15:22] LABS: Bilirubin,Urine Negative (Negative); Blood,Urine Negative (Negative); Clarity,Urine Clear (Clear); Color,Urine Yellow (Yellow); Glucose,Urine (UA) Normal (Normal); Ketones,Urine Trace mg/dL (Negative); Leukocyte Esterase,Urine Small (Negative); Nitrite,Urine Negative (Negative); Protein,Urine Trace mg/dL (Neg-Trace); Urobilinogen,Urine Normal (Normal)
[2021-11-17 15:31] LABS: Bacteria,Urine Few per hpf (None-Few); Budding Yeast,Urine Moderate per hpf (None Seen); Squamous Epithelial Cell,Urine Few per hpf (None-Few)
[2021-11-17] MEDS ORDERED: Ketorolac 30 MG/ML VIAL IVP ONE (16:26)
[2021-11-17] MEDS ORDERED: *HR* OxyCODONE Immed Rel 5 MG TABLET PO ONE (16:26)
[2021-11-17] MEDS ORDERED: traZODone 50 MG TABLET PO PRN (16:55)
[2021-11-17] MEDS ORDERED: cefTRIAXone 2,000 MG in 0.9 % Sodium Chloride 20 ML IVP ONE (17:00)
[2021-11-17] MEDS ORDERED: *HR* Metformin 500 MG TABLET PO SCH (17:00)
[2021-11-17] MEDS ORDERED: Naloxone 0.4 MG/ML INJ IVP PRN ×2 (19:11→19:32)
[2021-11-17] MEDS ORDERED: Mag Hydrox/Al Hydrox/Simeth 30 ML UDC PO PRN (19:32)
[2021-11-17] MEDS ORDERED: Ondansetron ODT 4 MG TAB.RAPDIS SL PRN (19:32)
[2021-11-17] MEDS ORDERED: Dextrose Gel 15 GM/37.5 ML TUBE PO PRN ×2 (19:39)
[2021-11-17] MEDS ORDERED: D5% in Water 1,000 ML IVC PRN (19:39)
[2021-11-17] MEDS ORDERED: *HR* Dextrose 50 % in Water (Syg) 50 ML SYRINGE IVP PRN (19:39)
[2021-11-17] MEDS: Insulin LISPRO 300 UNITS/3 ML VIAL SUBQ SCH (21:21)
[2021-11-17] MEDS: traZODone 50 MG TABLET PO SCH (21:23)
[2021-11-18] MEDS: 0.9 % Sodium Chloride 1,000 ML IVC SCH ×4 (02:06→18:19)
[2021-11-18] MEDS: *HR* OxyCODONE Immed Rel 5 MG TABLET PO PRN ×4 (02:07→21:09)
[2021-11-18 05:55] LABS: Hematocrit 28.7 % (35.3-44.9); Hemoglobin 7.8 g/dL (11.5-15.4); Mean Corpuscular HGB Conc 27.2 g/dL (31.6-35.5); Mean Corpuscular Hemoglobin 18.9 pg (28.0-33.3); Mean Corpuscular Volume 69.7 fL (83.0-100.0); Mean Platelet Volume 10.8 fL (9.4-12.4); Platelet Count 139 K/mcL (140-400); Red Blood Count 4.12 M/mcL (3.82-4.97); Red Cell Distribution Width 21.9 % (11.5-14.5); White Blood Count 7.4 K/mcL (4.3-11.1)
[2021-11-18 06:15] LABS: BUN/Creatinine Ratio 27 (6-26); Blood Urea Nitrogen 16 mg/dL (8-23); Calcium 7.6 mg/dL (8.6-10.3); Carbon Dioxide 29 mEq/L (23-29); Chloride 108 mEq/L (98-107); Glucose 78 mg/dL (70-105); Osmolality,Calculated 294 (280-300); Potassium 3.9 mEq/L (3.5-5.1); Sodium 142 mEq/L (136-145); eGFR For African Americans > 60 (> 60); eGFR For Non-African Americans > 60 (> 60)
[2021-11-18] MEDS: lisinopriL 20 MG TABLET PO SCH (08:24)
[2021-11-18] MEDS: Insulin LISPRO 300 UNITS/3 ML VIAL SUBQ SCH ×4 (08:25→21:10)
[2021-11-18] MEDS: BuPROPion XL (24 HR) 150 MG TABLET PO SCH (08:25)
[2021-11-18] MEDS: cefTRIAXone 2,000 MG in 0.9 % Sodium Chloride Mini Bag 100 ML IVPB SCH (08:25)
[2021-11-18] MEDS: allopurinoL 100 MG TABLET PO SCH (08:25)
[2021-11-18] MEDS: Acetaminophen 325 MG TABLET PO PRN (17:44)
[2021-11-18] MEDS: traZODone 50 MG TABLET PO SCH (21:09)
[2021-11-18] MEDS: Fluconazole 100 MG TABLET PO SCH (21:11)
[2021-11-18] MEDS ORDERED: *HR* OxyCODONE/APAP 7.5/325 TABLET PO PRN (21:48)
[2021-11-19] MEDS: 0.9 % Sodium Chloride 1,000 ML IVC SCH ×2 (02:40→15:58)
[2021-11-19] MEDS: *HR* OxyCODONE/APAP 5/325 TABLET PO PRN ×4 (05:33→19:39)
[2021-11-19 07:39] LABS: Hematocrit 28.6 % (35.3-44.9); Hemoglobin 7.7 g/dL (11.5-15.4); Mean Corpuscular HGB Conc 26.9 g/dL (31.6-35.5); Mean Corpuscular Volume 70.4 fL (83.0-100.0); Platelet Count 131 K/mcL (140-400); Red Blood Count 4.06 M/mcL (3.82-4.97); Red Cell Distribution Width 21.9 % (11.5-14.5); White Blood Count 5.9 K/mcL (4.3-11.1)
[2021-11-19 07:54] LABS: BUN/Creatinine Ratio 24 (6-26); Blood Urea Nitrogen 12 mg/dL (8-23); Calcium 7.6 mg/dL (8.6-10.3); Carbon Dioxide 26 mEq/L (23-29); Chloride 108 mEq/L (98-107); Glucose 81 mg/dL (70-105); Osmolality,Calculated 289 (280-300); Potassium 3.6 mEq/L (3.5-5.1); Sodium 140 mEq/L (136-145); eGFR For African Americans > 60 (> 60); eGFR For Non-African Americans > 60 (> 60)
[2021-11-19] MEDS: lisinopriL 20 MG TABLET PO SCH (08:34)
[2021-11-19] MEDS: Fluconazole 100 MG TABLET PO SCH (08:34)
[2021-11-19] MEDS: Insulin LISPRO 300 UNITS/3 ML VIAL SUBQ SCH ×4 (08:34→21:01)
[2021-11-19] MEDS: BuPROPion XL (24 HR) 150 MG TABLET PO SCH (08:34)
[2021-11-19] MEDS: allopurinoL 100 MG TABLET PO SCH (08:35)
[2021-11-19] MEDS: Acetaminophen 325 MG TABLET PO PRN ×2 (08:35→15:58)
[2021-11-19] MEDS: cefTRIAXone 2,000 MG in 0.9 % Sodium Chloride Mini Bag 100 ML IVPB SCH (08:35)
[2021-11-19] MEDS: traZODone 50 MG TABLET PO SCH (21:02)
[2021-11-20] MEDS: 0.9 % Sodium Chloride 1,000 ML IVC SCH ×2 (00:01→08:21)
[2021-11-20] MEDS: *HR* OxyCODONE/APAP 5/325 TABLET PO PRN ×4 (04:01→21:27)
[2021-11-20] MEDS: Insulin LISPRO 300 UNITS/3 ML VIAL SUBQ SCH ×4 (07:42→20:16)
[2021-11-20] MEDS: cefTRIAXone 2,000 MG in 0.9 % Sodium Chloride Mini Bag 100 ML IVPB SCH (08:21)
[2021-11-20] MEDS: lisinopriL 20 MG TABLET PO SCH (08:22)
[2021-11-20] MEDS: allopurinoL 100 MG TABLET PO SCH (08:22)
[2021-11-20] MEDS: BuPROPion XL (24 HR) 150 MG TABLET PO SCH (08:22)
[2021-11-20] MEDS: Fluconazole 100 MG TABLET PO SCH (08:23)
[2021-11-20 09:06] LABS: Basophils % 0.5 %; Eosinophils # 0.1 K/mcL (0.0-0.6); Eosinophils % 1.2 %; Hematocrit 31.8 % (35.3-44.9); Hemoglobin 8.7 g/dL (11.5-15.4); Immature Granulocytes % 0.2 % (0-4); Lymphocytes % 23.7 %; Mean Corpuscular HGB Conc 27.4 g/dL (31.6-35.5); Mean Corpuscular Hemoglobin 19.2 pg (28.0-33.3); Mean Platelet Volume 10.4 fL (9.4-12.4); Monocytes # 0.4 K/mcL (0.0-1.3); Monocytes % 4.3 %; Platelet Count 170 K/mcL (140-400); Red Blood Count 4.54 M/mcL (3.82-4.97); Red Cell Distribution Width 22.3 % (11.5-14.5); Segmented Neutrophils % 70.1 %; White Blood Count 8.5 K/mcL (4.3-11.1)
[2021-11-20 09:25] LABS: BUN/Creatinine Ratio 25 (6-26); Blood Urea Nitrogen 14 mg/dL (8-23); Calcium 7.7 mg/dL (8.6-10.3); Carbon Dioxide 24 mEq/L (23-29); Chloride 110 mEq/L (98-107); Glucose 97 mg/dL (70-105); Osmolality,Calculated 290 (280-300); Potassium 3.9 mEq/L (3.5-5.1); Sodium 140 mEq/L (136-145); eGFR For African Americans > 60 (> 60); eGFR For Non-African Americans > 60 (> 60)
[2021-11-20] MEDS ORDERED: Perflutren Lipid Microsphere 1.3 ML in 0.9 % Sodium Chloride 8.7 ML IVP PRN (11:08)
[2021-11-20 11:28] LABS: Anisocytosis 2+ (Not Present); Hypochromasia Present (Not Present); Macrocytosis Present (Not Present); Microcytosis Present (Not Present); Ovalocytes 1+ (Not Present); Poikilocytosis 1+ (Not Present)
[2021-11-20 11:30] LABS: Acanthocytes 1+ (Not Present); Platelet Estimate Normal (Normal)
[2021-11-20] MEDS: Furosemide 20 MG/2 ML VIAL IVP SCH ×2 (11:47→20:04)
[2021-11-20] MEDS: Piperacillin/Tazobactam 3.375 GM in 0.9 % Sodium Chloride Mini Bag 100 ML IVPB SCH ×2 (11:48→20:02)
[2021-11-20] MEDS: traZODone 50 MG TABLET PO SCH (20:03)
[2021-11-21] MEDS: Piperacillin/Tazobactam 3.375 GM in 0.9 % Sodium Chloride Mini Bag 100 ML IVPB SCH ×3 (03:57→19:48)
[2021-11-21] MEDS: *HR* OxyCODONE/APAP 5/325 TABLET PO PRN ×3 (04:36→19:52)
[2021-11-21] MEDS: *HR* Enoxaparin 40 MG/0.4 ML SYRINGE SQ SCH (05:52)
[2021-11-21 06:35] LABS: Hematocrit 30.2 % (35.3-44.9); Hemoglobin 8.4 g/dL (11.5-15.4); Mean Corpuscular HGB Conc 27.8 g/dL (31.6-35.5); Mean Corpuscular Hemoglobin 19.4 pg (28.0-33.3); Mean Corpuscular Volume 69.6 fL (83.0-100.0); Mean Platelet Volume 11.3 fL (9.4-12.4); Platelet Count 163 K/mcL (140-400); Red Blood Count 4.34 M/mcL (3.82-4.97); White Blood Count 6.8 K/mcL (4.3-11.1)
[2021-11-21 07:00] LABS: BUN/Creatinine Ratio 20 (6-26); Blood Urea Nitrogen 11 mg/dL (8-23); Calcium 8.1 mg/dL (8.6-10.3); Carbon Dioxide 30 mEq/L (23-29); Chloride 102 mEq/L (98-107); Glucose 72 mg/dL (70-105); Osmolality,Calculated 288 (280-300); Potassium 3.2 mEq/L (3.5-5.1); Sodium 140 mEq/L (136-145); eGFR For African Americans > 60 (> 60); eGFR For Non-African Americans > 60 (> 60)
[2021-11-21] MEDS: Insulin LISPRO 300 UNITS/3 ML VIAL SUBQ SCH ×4 (07:19→21:03)
[2021-11-21] MEDS: allopurinoL 100 MG TABLET PO SCH (08:00)
[2021-11-21] MEDS: Furosemide 20 MG/2 ML VIAL IVP SCH ×2 (08:00→19:49)
[2021-11-21] MEDS: BuPROPion XL (24 HR) 150 MG TABLET PO SCH (08:00)
[2021-11-21] MEDS: lisinopriL 20 MG TABLET PO SCH (08:00)
[2021-11-21 10:36] LABS: Adenovirus Not Detected (Not Detect); Bordetella Pertussis Not Detected (Not Detect); Chlamydophila pneumoniae Not Detected (Not Detect); Coronavirus 229E Not Detected (Not Detect); Coronavirus HKU1 Not Detected (Not Detect); Coronavirus NL63 Not Detected (Not Detect); Coronavirus OC43 Not Detected (Not Detect); Human Metapneumovirus Not Detected (Not Detect); Human Rhinovirus/Enterovirus Not Detected (Not Detect); Influenza A Subtype 2009 H1 Not Detected (Not Detect); Influenza B Not Detected (Not Detect); Mycoplasma pneumoniae Not Detected (Not Detect); Parainfluenza Virus 1 Not Detected (Not Detect); Parainfluenza Virus 2 Not Detected (Not Detect); Parainfluenza Virus 3 Not Detected (Not Detect); Parainfluenza Virus 4 Not Detected (Not Detect); Respiratory Syncytial Virus Not Detected (Not Detect); SARS-CoV-2 Not Detected (Not Detect)
[2021-11-21] MEDS ORDERED: Melatonin 3 MG TABLET PO PRN (17:10)
[2021-11-21] MEDS: traZODone 50 MG TABLET PO SCH (19:49)
[2021-11-21 22:21] LABS: Influenza A PCR Negative (Negative); Influenza B PCR Negative (Negative); Resp. Syncytial Virus PCR Negative (Negative)
[2021-11-21 22:24] LABS: SARS-CoV-2 by PCR (In House) Negative (Negative)
[2021-11-22] MEDS: *HR* OxyCODONE/APAP 5/325 TABLET PO PRN ×3 (00:29→09:03)
[2021-11-22] MEDS: Piperacillin/Tazobactam 3.375 GM in 0.9 % Sodium Chloride Mini Bag 100 ML IVPB SCH (03:57)
[2021-11-22] MEDS: *HR* Enoxaparin 40 MG/0.4 ML SYRINGE SQ SCH (04:42)
[2021-11-22 06:02] VITALS: BP 118/76; PULSE 63; RESP 12; TEMP 97.8; O2SAT 96
[2021-11-22] MEDS: Insulin LISPRO 300 UNITS/3 ML VIAL SUBQ SCH (07:12)
[2021-11-22 07:39] LABS: Hematocrit 30.7 % (35.3-44.9); Hemoglobin 8.8 g/dL (11.5-15.4); Mean Corpuscular HGB Conc 28.7 g/dL (31.6-35.5); Mean Corpuscular Hemoglobin 19.3 pg (28.0-33.3); Mean Corpuscular Volume 67.3 fL (83.0-100.0); Platelet Count 161 K/mcL (140-400); Red Blood Count 4.56 M/mcL (3.82-4.97); Red Cell Distribution Width 21.7 % (11.5-14.5); White Blood Count 6.3 K/mcL (4.3-11.1)
[2021-11-22 07:43] LABS: BUN/Creatinine Ratio 20 (6-26); Blood Urea Nitrogen 10 mg/dL (8-23); Calcium 8.2 mg/dL (8.6-10.3); Carbon Dioxide 33 mEq/L (23-29); Chloride 100 mEq/L (98-107); Glucose 79 mg/dL (70-105); Magnesium 1.1 mg/dL (1.6-2.6); Osmolality,Calculated 292 (280-300); Potassium 3.1 mEq/L (3.5-5.1); Sodium 142 mEq/L (136-145); eGFR For African Americans > 60 (> 60); eGFR For Non-African Americans > 60 (> 60)
[2021-11-22] MEDS: BuPROPion XL (24 HR) 150 MG TABLET PO SCH (08:04)
[2021-11-22] MEDS: allopurinoL 100 MG TABLET PO SCH (08:04)
[2021-11-22] MEDS: Acetaminophen 325 MG TABLET PO PRN (08:05)
[2021-11-22] MEDS: lisinopriL 20 MG TABLET PO SCH (08:05)
[2021-11-22] MEDS: Furosemide 20 MG/2 ML VIAL IVP SCH (10:04)
== END 2021-11-22 10:50 | DRG 177 ==
LOC: EMEROOPIK 11:15 → INPPIK 11:15
PROVIDERS: ADMIT Family Medicine; ATTEND Family Medicine

== ENCOUNTER 2022-03-01 18:47 | Observation (INO) ==
[2022-03-01] MEDS ORDERED: 0.9 % Sodium Chloride 1,000 ML IV ONE (18:58)
[2022-03-01] MEDS ORDERED: Ondansetron 4 MG/2 ML VIAL IVP ONE (19:09)
[2022-03-01 19:16] LABS: Bilirubin,Urine Negative (Negative); Blood,Urine Small (Negative); Clarity,Urine Cloudy (Clear); Color,Urine Yellow (Yellow); Glucose,Urine (UA) Normal (Normal); Ketones,Urine Negative (Negative); Leukocyte Esterase,Urine Large (Negative); Nitrite,Urine Positive (Negative); PH,Urine 5.5 pH Units (5.0-8.0); Protein,Urine 30 mg/dL (Neg-Trace); Urobilinogen,Urine Normal (Normal)
[2022-03-01 19:21] LABS: Bacteria,Urine Many per hpf (None-Few)
[2022-03-01 19:22] LABS: Squamous Epithelial Cell,Urine Few per hpf (None-Few); WBC,Urine TNTC per hpf (0-3)
[2022-03-01 19:24] LABS: Hyaline Casts,Urine Few per lpf (None Seen)
[2022-03-01] MEDS ORDERED: levoFLOXacin 750 MG/150 ML 750 MG/150 ML BAG IVPB STA (19:26)
[2022-03-01 19:29] LABS: Basophils % 0.3 %; Eosinophils % 0.1 %; Hemoglobin 11.5 g/dL (11.5-15.4); Immature Granulocytes % 0.3 % (0-4); Lymphocytes # 0.9 K/mcL (0.6-4.6); Lymphocytes % 8.6 %; Mean Corpuscular HGB Conc 31.9 g/dL (31.6-35.5); Mean Corpuscular Volume 87.6 fL (83.0-100.0); Mean Platelet Volume 10.7 fL (9.4-12.4); Monocytes # 0.7 K/mcL (0.0-1.3); Monocytes % 6.9 %; Neutrophils # 8.9 K/mcL (1.6-8.9); Platelet Count 139 K/mcL (140-400); Red Blood Count 4.11 M/mcL (3.82-4.97); Red Cell Distribution Width 18.5 % (11.5-14.5); Segmented Neutrophils % 83.8 %; White Blood Count 10.6 K/mcL (4.3-11.1)
[2022-03-01 19:37] LABS: INR 1.1; Prothrombin Time 12.6 Seconds (9.4-12.1)
[2022-03-01 19:48] LABS: Troponin I < 0.03 ng/mL (< 0.04)
[2022-03-01 19:49] LABS: Albumin 3.5 g/dL (3.5-5.7); Albumin/Globulin Ratio 1.1 (1.1-2.2); Bilirubin,Total 0.5 mg/dL (0.3-1.0); Calcium 8.4 mg/dL (8.6-10.3); Globulin 3.1 g/dL (2.4-3.5); Lipase 4 Units/L (11-82); Potassium 4.3 mEq/L (3.5-5.1); Total Protein 6.6 g/dL (6.4-8.9)
[2022-03-01] MEDS ORDERED: Melatonin 3 MG TABLET PO PRN (20:37)
[2022-03-01] MEDS ORDERED: Acetaminophen 325 MG TABLET PO PRN (20:37)
[2022-03-01] MEDS ORDERED: Ondansetron 4 MG/2 ML VIAL IVP PRN (20:37)
[2022-03-01] MEDS ORDERED: Naloxone 0.4 MG/ML INJ IVP PRN (20:37)
[2022-03-02] MEDS: *HR* Enoxaparin 40 MG/0.4 ML SYRINGE SQ SCH (05:53)
[2022-03-02 07:05] LABS: Basophils % 0.4 %; Eosinophils % 0.2 %; Hematocrit 35.5 % (35.3-44.9); Hemoglobin 11.1 g/dL (11.5-15.4); Immature Granulocytes % 0.4 % (0-4); Lymphocytes # 1.6 K/mcL (0.6-4.6); Lymphocytes % 18.7 %; Mean Corpuscular HGB Conc 31.3 g/dL (31.6-35.5); Mean Corpuscular Volume 89.6 fL (83.0-100.0); Mean Platelet Volume 11.1 fL (9.4-12.4); Monocytes # 0.8 K/mcL (0.0-1.3); Monocytes % 9.3 %; Neutrophils # 5.9 K/mcL (1.6-8.9); Platelet Count 118 K/mcL (140-400); Red Blood Count 3.96 M/mcL (3.82-4.97); Red Cell Distribution Width 18.4 % (11.5-14.5); White Blood Count 8.3 K/mcL (4.3-11.1)
[2022-03-02 07:18] LABS: Calcium 8.4 mg/dL (8.6-10.3); Magnesium 1.4 mg/dL (1.6-2.6); Phosphorous 3.3 mg/dL (2.7-4.5); Potassium 4.5 mEq/L (3.5-5.1)
[2022-03-02 07:50] LABS: Anisocytosis 2+ (Not Present); Platelet Estimate Decreased (Normal); Stomatocytes 1+ (Not Present)
[2022-03-02] MEDS: Nystatin POWDER 30 GM BOTTLE TP SCH ×3 (09:52→20:14)
[2022-03-02] MEDS: *HR* Metformin 500 MG TABLET PO SCH ×2 (13:25→18:21)
[2022-03-02] MEDS: allopurinoL 100 MG TABLET PO SCH (14:18)
[2022-03-02] MEDS: lisinopriL 20 MG TABLET PO SCH (14:18)
[2022-03-02] MEDS: BuPROPion XL (24 HR) 150 MG TABLET PO SCH (14:18)
[2022-03-02] MEDS: Nicotine 21 MG PATCH.TD24 TD SCH (14:19)
[2022-03-02] MEDS ORDERED: levoFLOXacin 750 MG/150 ML 750 MG/150 ML BAG IVPB SCH (21:00)
[2022-03-03] MEDS: *HR* HYDROcodone/Acet 7.5/325 mg TABLET PO PRN (02:05)
[2022-03-03 07:04] LABS: Basophils % 0.4 %; Eosinophils % 0.4 %; Hematocrit 33.1 % (35.3-44.9); Hemoglobin 10.3 g/dL (11.5-15.4); Immature Granulocytes % 0.4 % (0-4); Lymphocytes # 2.1 K/mcL (0.6-4.6); Lymphocytes % 26.5 %; Mean Corpuscular HGB Conc 31.1 g/dL (31.6-35.5); Mean Corpuscular Hemoglobin 27.4 pg (28.0-33.3); Mean Platelet Volume 11.1 fL (9.4-12.4); Monocytes # 0.6 K/mcL (0.0-1.3); Monocytes % 7.9 %; Platelet Count 123 K/mcL (140-400); Red Blood Count 3.76 M/mcL (3.82-4.97); Red Cell Distribution Width 18.2 % (11.5-14.5); Segmented Neutrophils % 64.4 %; White Blood Count 7.7 K/mcL (4.3-11.1)
[2022-03-03 07:30] LABS: Calcium 8.4 mg/dL (8.6-10.3); Magnesium 1.4 mg/dL (1.6-2.6); Potassium 3.8 mEq/L (3.5-5.1)
[2022-03-03] MEDS: BuPROPion XL (24 HR) 150 MG TABLET PO SCH (07:30)
[2022-03-03] MEDS: *HR* Metformin 500 MG TABLET PO SCH ×2 (07:30→16:17)
[2022-03-03] MEDS: allopurinoL 100 MG TABLET PO SCH (07:30)
[2022-03-03] MEDS: Nicotine 21 MG PATCH.TD24 TD SCH (07:31)
[2022-03-03] MEDS: *HR* Enoxaparin 40 MG/0.4 ML SYRINGE SQ SCH (07:31)
[2022-03-03] MEDS: lisinopriL 20 MG TABLET PO SCH (07:31)
[2022-03-03] MEDS: Nystatin POWDER 30 GM BOTTLE TP SCH ×3 (07:33→21:02)
[2022-03-03 09:00] LABS: Anisocytosis 1+ (Not Present); Platelet Estimate Slight Decrease (Normal)
[2022-03-03] MEDS ORDERED: levoFLOXacin 750 MG/150 ML 750 MG/150 ML BAG IVPB SCH ×2 (21:00)
[2022-03-03] MEDS: Acetaminophen 325 MG TABLET PO PRN (21:01)
[2022-03-04] MEDS: *HR* HYDROcodone/Acet 7.5/325 mg TABLET PO PRN ×2 (04:02→23:17)
[2022-03-04] MEDS: *HR* Enoxaparin 40 MG/0.4 ML SYRINGE SQ SCH (05:55)
[2022-03-04 07:52] LABS: Basophils % 0.6 %; Eosinophils # 0.1 K/mcL (0.0-0.6); Eosinophils % 1.2 %; Hematocrit 32.3 % (35.3-44.9); Hemoglobin 10.1 g/dL (11.5-15.4); Immature Granulocytes % 0.8 % (0-4); Lymphocytes # 1.6 K/mcL (0.6-4.6); Lymphocytes % 30.1 %; Mean Corpuscular HGB Conc 31.3 g/dL (31.6-35.5); Mean Corpuscular Hemoglobin 27.8 pg (28.0-33.3); Mean Platelet Volume 11.3 fL (9.4-12.4); Monocytes # 0.4 K/mcL (0.0-1.3); Monocytes % 6.9 %; Neutrophils # 3.1 K/mcL (1.6-8.9); Platelet Count 130 K/mcL (140-400); Red Blood Count 3.63 M/mcL (3.82-4.97); Red Cell Distribution Width 17.6 % (11.5-14.5); Segmented Neutrophils % 60.4 %; White Blood Count 5.2 K/mcL (4.3-11.1)
[2022-03-04 08:18] LABS: Calcium 8.4 mg/dL (8.6-10.3); Magnesium 1.6 mg/dL (1.6-2.6)
[2022-03-04] MEDS: Nicotine 21 MG PATCH.TD24 TD SCH (08:18)
[2022-03-04] MEDS: BuPROPion XL (24 HR) 150 MG TABLET PO SCH (08:18)
[2022-03-04] MEDS: *HR* Metformin 500 MG TABLET PO SCH ×2 (08:18→15:54)
[2022-03-04] MEDS: lisinopriL 20 MG TABLET PO SCH (08:26)
[2022-03-04] MEDS: allopurinoL 100 MG TABLET PO SCH (08:26)
[2022-03-04] MEDS: Nystatin POWDER 30 GM BOTTLE TP SCH ×4 (08:26→23:17)
[2022-03-04] MEDS: Acetaminophen 325 MG TABLET PO PRN (15:54)
[2022-03-05] MEDS: Acetaminophen 325 MG TABLET PO PRN (04:30)
[2022-03-05] MEDS: *HR* Enoxaparin 40 MG/0.4 ML SYRINGE SQ SCH (06:52)
[2022-03-05] MEDS: *HR* HYDROcodone/Acet 7.5/325 mg TABLET PO PRN (06:54)
[2022-03-05 07:10] VITALS: RESP 18
[2022-03-05 07:15] LABS: Basophils % 0.7 %; Eosinophils % 0.7 %; Hemoglobin 10.5 g/dL (11.5-15.4); Immature Granulocytes % 0.5 % (0-4); Lymphocytes # 1.8 K/mcL (0.6-4.6); Lymphocytes % 31.5 %; Mean Corpuscular HGB Conc 31.8 g/dL (31.6-35.5); Mean Corpuscular Hemoglobin 28.1 pg (28.0-33.3); Mean Corpuscular Volume 88.2 fL (83.0-100.0); Mean Platelet Volume 10.6 fL (9.4-12.4); Monocytes # 0.3 K/mcL (0.0-1.3); Monocytes % 5.8 %; Neutrophils # 3.4 K/mcL (1.6-8.9); Platelet Count 140 K/mcL (140-400); Red Blood Count 3.74 M/mcL (3.82-4.97); Red Cell Distribution Width 17.8 % (11.5-14.5); Segmented Neutrophils % 60.8 %; White Blood Count 5.6 K/mcL (4.3-11.1)
[2022-03-05 07:49] LABS: Calcium 8.5 mg/dL (8.6-10.3); Potassium 4.1 mEq/L (3.5-5.1)
[2022-03-05] MEDS: lisinopriL 20 MG TABLET PO SCH (08:34)
[2022-03-05] MEDS: Nicotine 21 MG PATCH.TD24 TD SCH (08:34)
[2022-03-05] MEDS: BuPROPion XL (24 HR) 150 MG TABLET PO SCH (08:35)
[2022-03-05] MEDS: *HR* Metformin 500 MG TABLET PO SCH (08:35)
[2022-03-05] MEDS: Nystatin POWDER 30 GM BOTTLE TP SCH (08:35)
[2022-03-05] MEDS: allopurinoL 100 MG TABLET PO SCH (08:35)
[2022-03-05] MEDS ORDERED: levoFLOXacin 750 MG TABLET PO SCH (09:00)
[2022-03-05 10:21] VITALS: BP 102/59; PULSE 77; TEMP 97.2; O2SAT 96
[2022-03-06] MEDS ORDERED: levoFLOXacin 750 MG TABLET PO SCH (09:00)
== END 2022-03-05 12:54 | disposition other institution (70) ==
LOC: INPPIK 18:47 → EMEROOPIK 18:47 → INPPIK 22:04
PROVIDERS: ADMIT Internal Medicine; ATTEND Internal Medicine

== ENCOUNTER 2022-03-05 10:32 | Inpatient (IN) ==
[2022-03-05] MEDS ORDERED: Acetaminophen 325 MG TABLET PO PRN (13:13)
[2022-03-05] MEDS ORDERED: *HR* HYDROcodone/Acet 7.5/325 mg TABLET PO PRN (13:13)
[2022-03-05] MEDS: *HR* Metformin 500 MG TABLET PO SCH (18:20)
[2022-03-06 06:28] VITALS: BP 113/75; PULSE 69; RESP 15; TEMP 97.8; O2SAT 94
[2022-03-06] MEDS: *HR* Metformin 500 MG TABLET PO SCH ×2 (08:10→17:21)
[2022-03-06 08:13] LABS: Basophils # 0.1 K/mcL (0.0-0.2); Basophils % 0.7 %; Eosinophils # 0.1 K/mcL (0.0-0.6); Eosinophils % 0.8 %; Hematocrit 36.8 % (35.3-44.9); Hemoglobin 11.6 g/dL (11.5-15.4); Immature Granulocytes % 0.9 % (0-4); Lymphocytes # 1.8 K/mcL (0.6-4.6); Lymphocytes % 23.9 %; Mean Corpuscular HGB Conc 31.5 g/dL (31.6-35.5); Mean Corpuscular Hemoglobin 28.3 pg (28.0-33.3); Mean Corpuscular Volume 89.8 fL (83.0-100.0); Mean Platelet Volume 10.7 fL (9.4-12.4); Monocytes # 0.4 K/mcL (0.0-1.3); Monocytes % 5.7 %; Neutrophils # 5.2 K/mcL (1.6-8.9); Platelet Count 176 K/mcL (140-400); Red Cell Distribution Width 17.5 % (11.5-14.5); White Blood Count 7.7 K/mcL (4.3-11.1)
[2022-03-06 08:34] LABS: Calcium 8.7 mg/dL (8.6-10.3); Potassium 4.1 mEq/L (3.5-5.1)
[2022-03-06] MEDS ORDERED: levoFLOXacin 750 MG TABLET PO SCH (09:00)
[2022-03-06] MEDS ORDERED: BuPROPion XL (24 HR) 150 MG TABLET PO SCH (09:00)
[2022-03-06] MEDS ORDERED: lisinopriL 20 MG TABLET PO SCH (09:00)
[2022-03-06] MEDS ORDERED: allopurinoL 100 MG TABLET PO SCH (09:00)
[2022-03-06] MEDS ORDERED: Nicotine 21 MG PATCH.TD24 TD SCH (11:40)
== END 2022-03-06 19:13 | DRG 690 ==
LOC: INPPIK 13:09 → SUATTDRO 13:09
PROVIDERS: ADMIT Internal Medicine; ATTEND Family Medicine